=== PATIENT | male | born 1985 | race Caucasian/White ===

== ENCOUNTER 2016-06-06 13:12 | Emergency (ER) | payer MEDICARE, OTHER ==
[~2016-06-06] VITALS: Ht 182.9 cm; Wt 68.0 kg
[2016-06-06 14:39] LABS: BASOPHILS % (AUTO) 0.7 % (0.0-2.0); EOSINOPHILS % (AUTO) 0.6 % (1.0-6.0); HEMATOCRIT 48.4 % (41-53); HEMOGLOBIN 15.9 g/dL (13.5-17.5); LYMPHOCYTES # (AUTO) 1.5 K/uL (1.0-4.8); LYMPHOCYTES % (AUTO) 7.3 % (22.0-44.0); MEAN CORPUSCULAR HEMOGLOBIN 30.6 pg (26.0-34.0); MEAN CORPUSCULAR HGB CONC 32.9 G/dL (31.0-37.0); MEAN CORPUSCULAR VOLUME 93 fL (80-100); MONOCYTES # (AUTO) 1.1 K/uL (0.1-1.0); MONOCYTES % (AUTO) 5.4 % (2.0-9.0); NEUTROPHILS # (AUTO) 18.2 K/uL (1.8-7.7); PLATELET COUNT (AUTO) 474 K/uL (150-450); RED CELL DISTRIBUTION WIDTH 13.1 % (11.5-14.5); WHITE BLOOD COUNT (AUTO) 21.1 K/uL (4.5-11.0)
[2016-06-06 14:44] LABS: ANION GAP 18 mmol/L (8-16); CALCIUM, TOTAL 9.4 mg/dL (8.8-10.5); CARBON DIOXIDE 21 mmol/L (22-29); CHLORIDE 102 mmol/L (98-107); CREATININE 0.81 mg/dL (0.60-1.30); GLOMERULAR FILTR. RATE CALC > 60 mL/min (>60); POTASSIUM 4.2 mmol/L (3.5-5.1); SODIUM SERUM 141 mmol/L (136-145); UREA NITROGEN, BLOOD 16 mg/dL (7-18)
[2016-06-06 14:50] LABS: ALANINE AMINOTRANSFERASE 30 U/L (12-78); ASPARTATE AMINOTRANSFERASE 25 U/L (15-37); BILIRUBIN,TOTAL 0.9 mg/dL (0.1-1.0); TOTAL PROTEIN, SERUM 8.2 g/dL (6.4-8.2)
[2016-06-06 16:30] LABS: APPEARANCE,URINE CLEAR (CLEAR); GLUCOSE, URINE (UA) NEGATIVE (NEGATIVE); KETONES,URINE 15 mg/dL (NEGATIVE); LEUKOCYTE ESTERASE ,URINE NEGATIVE (NEGATIVE); OCCULT BLOOD,URINE NEGATIVE (NEGATIVE); PROTEIN,URINE NEGATIVE (NEGATIVE)
[2016-06-06 16:31] LABS: ADD UA MICROSCOPIC NO
[2016-06-06 16:57] LABS: GLUCOSE,POINT OF CARE 111 MG/DL (70-110)
[2016-06-06 18:01] VITALS: BP 131/72
== END 2016-06-06 18:03 | disposition home or self-care (01) ==
LOC: EMS 13:14
DX: F20.9 Schizophrenia, unspecified (principal); F31.9 Bipolar disorder, unspecified; E86.0 Dehydration; F15.10 Other stimulant abuse, uncomplicated; F17.210 Nicotine dependence, cigarettes, uncomplicated; F12.90 Cannabis use, unspecified, uncomplicated; Z88.8 Allergy status to other drugs, medicaments and biological substances
CPT/HCPCS: 36415; 80053; 80307; 81003; 82962; 85025; 99284; 99406; G0480

== ENCOUNTER 2016-06-06 18:46 | Emergency (ER) | payer MEDICARE, OTHER ==
[~2016-06-06] VITALS: Ht 177.8 cm; Wt 68.0 kg
[2016-06-07 01:41] VITALS: BP 114/74
[2016-06-07] MEDS ORDERED: BACITRACIN/POLYMYXIN B 15 GM OINTMENT TP ONE (01:45)
== END 2016-06-07 02:17 | disposition home or self-care (01) ==
LOC: EMS 18:49
DX: M79.674 Pain in right toe(s) (principal); F12.90 Cannabis use, unspecified, uncomplicated; F15.90 Other stimulant use, unspecified, uncomplicated; Z88.8 Allergy status to other drugs, medicaments and biological substances
CPT/HCPCS: 99283

== ENCOUNTER 2016-06-08 00:28 | Emergency (ER) | payer MEDICARE, OTHER ==
[~2016-06-08] VITALS: Ht 175.3 cm; Wt 80.9 kg
[2016-06-08 02:39] VITALS: BP 132/85
== END 2016-06-08 02:41 | disposition home or self-care (01) ==
LOC: EMS 00:30
DX: F41.9 Anxiety disorder, unspecified (principal); F12.10 Cannabis abuse, uncomplicated; F15.10 Other stimulant abuse, uncomplicated; F20.9 Schizophrenia, unspecified; F31.9 Bipolar disorder, unspecified; F10.20 Alcohol dependence, uncomplicated; Y90.9 Presence of alcohol in blood, level not specified; Z59.0 Homelessness; Z88.8 Allergy status to other drugs, medicaments and biological substances
CPT/HCPCS: 93005; 99283

== ENCOUNTER 2016-06-08 05:58 | Emergency (ER) | payer MEDICARE, OTHER ==
[~2016-06-08] VITALS: Ht 172.7 cm; Wt 81.8 kg
[2016-06-08 06:01] VITALS: BP 143/75
== END 2016-06-08 07:24 | disposition left against medical advice (07) ==
LOC: EMS 06:00
DX: F20.0 Paranoid schizophrenia (principal); F31.9 Bipolar disorder, unspecified; F12.10 Cannabis abuse, uncomplicated; F15.10 Other stimulant abuse, uncomplicated; F10.20 Alcohol dependence, uncomplicated; Y90.9 Presence of alcohol in blood, level not specified; Z59.0 Homelessness; Z88.8 Allergy status to other drugs, medicaments and biological substances
CPT/HCPCS: 99284

== ENCOUNTER 2016-06-20 00:28 | Emergency (ER) | payer MEDICARE, OTHER ==
[~2016-06-20] VITALS: Ht 185.4 cm; Wt 75.0 kg
[2016-06-20 02:14] LABS: BASOPHILS % (AUTO) 0.4 % (0.0-2.0); EOSINOPHILS % (AUTO) 1.2 % (1.0-6.0); HEMATOCRIT 48.7 % (41-53); LYMPHOCYTES % (AUTO) 11.4 % (22.0-44.0); MEAN CORPUSCULAR HEMOGLOBIN 30.5 pg (26.0-34.0); MEAN CORPUSCULAR HGB CONC 32.8 G/dL (31.0-37.0); MEAN CORPUSCULAR VOLUME 93 fL (80-100); MONOCYTES % (AUTO) 5.4 % (2.0-9.0); NEUTROPHILS # (AUTO) 14.6 K/uL (1.8-7.7); NEUTROPHILS % (AUTO) 81.6 % (40.0-70.0); PLATELET COUNT (AUTO) 425 K/uL (150-450); RED BLOOD CELL COUNT(AUTO) 5.24 MIL/uL (4.50-5.90); RED CELL DISTRIBUTION WIDTH 12.5 % (11.5-14.5); WHITE BLOOD COUNT (AUTO) 17.9 K/uL (4.5-11.0)
[2016-06-20 02:20] LABS: ANION GAP 16 mmol/L (8-16); CARBON DIOXIDE 21 mmol/L (22-29); CHLORIDE 100 mmol/L (98-107); CREATININE 0.76 mg/dL (0.60-1.30); GLOMERULAR FILTR. RATE CALC > 60 mL/min (>60); POTASSIUM 3.1 mmol/L (3.5-5.1); SODIUM SERUM 137 mmol/L (136-145); UREA NITROGEN, BLOOD 18 mg/dL (7-18)
[2016-06-20 02:26] LABS: ALANINE AMINOTRANSFERASE 23 U/L (12-78); ALBUMIN 3.8 g/dL (3.4-5.0); ASPARTATE AMINOTRANSFERASE 23 U/L (15-37); BILIRUBIN,TOTAL 0.6 mg/dL (0.1-1.0); TOTAL PROTEIN, SERUM 8.2 g/dL (6.4-8.2)
[2016-06-20] MEDS ORDERED: POTASSIUM CHLORIDE 10% 40 MEQ/30 ML LIQUID UDCUP PO ONE (02:45)
[2016-06-20 04:15] VITALS: BP 123/76
== END 2016-06-20 04:25 | disposition home or self-care (01) ==
LOC: EMS 00:34
DX: F10.229 Alcohol dependence with intoxication, unspecified (principal); F20.0 Paranoid schizophrenia; F31.9 Bipolar disorder, unspecified; F12.90 Cannabis use, unspecified, uncomplicated; F15.90 Other stimulant use, unspecified, uncomplicated; Y90.5 Blood alcohol level of 100-119 mg/100 ml; Z88.8 Allergy status to other drugs, medicaments and biological substances
CPT/HCPCS: 36415; 80053; 85025; 99284; G0480

== ENCOUNTER 2016-06-22 13:43 | Emergency (ER) | payer MEDICARE, OTHER ==
[~2016-06-22] VITALS: Ht 182.9 cm; Wt 72.0 kg
[2016-06-22] MEDS ORDERED: SODIUM CHLORIDE 0.9% 1,000 ML IV ONE (14:30)
[2016-06-22 16:38] VITALS: BP 129/79
== END 2016-06-22 18:39 | disposition home or self-care (01) ==
LOC: EMS 13:46
DX: E86.0 Dehydration (principal); G80.9 Cerebral palsy, unspecified; F20.0 Paranoid schizophrenia; F31.9 Bipolar disorder, unspecified; F12.90 Cannabis use, unspecified, uncomplicated; F15.90 Other stimulant use, unspecified, uncomplicated; Z59.0 Homelessness; Z88.8 Allergy status to other drugs, medicaments and biological substances
CPT/HCPCS: 96360; 99284; J7030

== ENCOUNTER 2016-06-25 19:09 | Emergency (ER) | payer MEDICARE, OTHER | END 2016-06-25 20:28 | disposition left against medical advice (07) | LOC: EMS 19:11 | DX: L29.9 Pruritus, unspecified (principal); Z53.21 Procedure and treatment not carried out due to patient leaving prior to being seen by health care provider ==

== ENCOUNTER 2016-07-24 21:08 | Emergency (ER) | payer MEDICARE, OTHER ==
[~2016-07-24] VITALS: Ht 182.9 cm; Wt 70.0 kg
[2016-07-24] MEDS ORDERED: SODIUM CHLORIDE 0.9% 1,000 ML IV ONE (21:45)
[2016-07-24 21:58] LABS: BASOPHILS # (AUTO) 0.02 K/uL (0.00-0.20); BASOPHILS % (AUTO) 0.1 % (0.0-2.0); EOSINOPHILS # (AUTO) 0.03 K/uL (0.00-0.70); EOSINOPHILS % (AUTO) 0.15 % (1.0-6.0); HEMATOCRIT 44.6 % (41-53); HEMOGLOBIN 14.8 g/dL (13.5-17.5); LYMPHOCYTES # (AUTO) 2.3 K/uL (1.0-4.8); LYMPHOCYTES % (AUTO) 9.6 % (22.0-44.0); MEAN CORPUSCULAR HEMOGLOBIN 30.2 pg (26.0-34.0); MEAN CORPUSCULAR HGB CONC 33.3 G/dL (31.0-37.0); MEAN CORPUSCULAR VOLUME 91 fL (80-100); MONOCYTES % (AUTO) 8.4 % (2.0-9.0); NEUTROPHILS # (AUTO) 19.2 K/uL (1.8-7.7); NEUTROPHILS % (AUTO) 81.7 % (40.0-70.0); PLATELET COUNT (AUTO) 387 K/uL (150-450); RED BLOOD CELL COUNT(AUTO) 4.91 MIL/uL (4.50-5.90); RED CELL DISTRIBUTION WIDTH 12.5 % (11.5-14.5); WHITE BLOOD COUNT (AUTO) 23.5 K/uL (4.5-11.0)
[2016-07-24] MEDS ORDERED: ONDANSETRON HCL 4 MG/2 ML VIAL IVP ONE (22:00)
[2016-07-24 22:20] LABS: ANION GAP 17 mmol/L (8-16); CALCIUM, TOTAL 9.1 mg/dL (8.8-10.5); CARBON DIOXIDE 19 mmol/L (22-29); CHLORIDE 99 mmol/L (98-107); CREATININE 0.84 mg/dL (0.60-1.30); GLOMERULAR FILTR. RATE CALC > 60 mL/min (>60); SODIUM SERUM 135 mmol/L (136-145); UREA NITROGEN, BLOOD 22 mg/dL (7-18)
[2016-07-24] MEDS ORDERED: IOVERSOL 350 MG/ML 100 ML VIAL ONE (22:31)
[2016-07-24] MEDS ORDERED: SODIUM CHLORIDE 0.9% 100 ML ONE (22:31)
[2016-07-24 22:56] LABS: ALANINE AMINOTRANSFERASE 51 U/L (12-78); ALBUMIN 4.1 g/dL (3.4-5.0); ASPARTATE AMINOTRANSFERASE 54 U/L (15-37); BILIRUBIN,TOTAL 0.9 mg/dL (0.1-1.0); TOTAL PROTEIN, SERUM 8.3 g/dL (6.4-8.2)
[2016-07-25 01:07] VITALS: BP 137/75
== END 2016-07-25 00:28 | disposition home or self-care (01) ==
LOC: EMS 21:12
DX: F10.120 Alcohol abuse with intoxication, uncomplicated (principal); R10.9 Unspecified abdominal pain; R11.2 Nausea with vomiting, unspecified; F20.9 Schizophrenia, unspecified; F12.10 Cannabis abuse, uncomplicated
CPT/HCPCS: 36415; 74177; 80053; 80307; 83690; 85025; 96361; 96374; 99285; G0480; J2405; J7030; J7050; Q9967

== ENCOUNTER 2016-08-01 15:22 | Emergency (ER) | payer MEDICARE, OTHER ==
[~2016-08-01] VITALS: Ht 182.9 cm; Wt 68.2 kg
[2016-08-01 16:28] LABS: BASOPHILS % (AUTO) 0.9 % (0.0-2.0); EOSINOPHILS % (AUTO) 8.1 % (1.0-6.0); HEMATOCRIT 43.3 % (41-53); HEMOGLOBIN 14.1 g/dL (13.5-17.5); LYMPHOCYTES % (AUTO) 19.1 % (22.0-44.0); MEAN CORPUSCULAR HEMOGLOBIN 30.1 pg (26.0-34.0); MEAN CORPUSCULAR HGB CONC 32.5 G/dL (31.0-37.0); MEAN CORPUSCULAR VOLUME 93 fL (80-100); MONOCYTES # (AUTO) 0.8 K/uL (0.1-1.0); MONOCYTES % (AUTO) 7.7 % (2.0-9.0); NEUTROPHILS # (AUTO) 6.7 K/uL (1.8-7.7); NEUTROPHILS % (AUTO) 64.2 % (40.0-70.0); PLATELET COUNT (AUTO) 380 K/uL (150-450); RED BLOOD CELL COUNT(AUTO) 4.67 MIL/uL (4.50-5.90); RED CELL DISTRIBUTION WIDTH 12.9 % (11.5-14.5); WHITE BLOOD COUNT (AUTO) 10.5 K/uL (4.5-11.0)
[2016-08-01 16:38] LABS: ANION GAP 9 mmol/L (8-16); CALCIUM, TOTAL 8.2 mg/dL (8.8-10.5); CARBON DIOXIDE 26 mmol/L (22-29); CHLORIDE 107 mmol/L (98-107); CREATININE 0.68 mg/dL (0.60-1.30); GLOMERULAR FILTR. RATE CALC > 60 mL/min (>60); POTASSIUM 3.9 mmol/L (3.5-5.1); SODIUM SERUM 142 mmol/L (136-145); UREA NITROGEN, BLOOD 6 mg/dL (7-18)
[2016-08-01 16:45] LABS: ALANINE AMINOTRANSFERASE 38 U/L (12-78); ALBUMIN 3.1 g/dL (3.4-5.0); ASPARTATE AMINOTRANSFERASE 30 U/L (15-37); BILIRUBIN,TOTAL 0.5 mg/dL (0.1-1.0); TOTAL PROTEIN, SERUM 6.8 g/dL (6.4-8.2)
[2016-08-01 17:33] VITALS: BP 121/67
== END 2016-08-01 17:46 | disposition home or self-care (01) ==
LOC: EMS 15:24
DX: F20.9 Schizophrenia, unspecified (principal); F31.9 Bipolar disorder, unspecified; F12.90 Cannabis use, unspecified, uncomplicated; F19.90 Other psychoactive substance use, unspecified, uncomplicated; Z88.0 Allergy status to penicillin
CPT/HCPCS: 36415; 80053; 80307; 85025; 99284; G0480

== ENCOUNTER 2016-10-02 14:27 | Emergency (ER) | payer MEDICARE, OTHER ==
[~2016-10-02] VITALS: Ht 180.3 cm; Wt 65.9 kg
[2016-10-02 16:47] VITALS: BP 117/71
== END 2016-10-02 17:21 | disposition home or self-care (01) ==
LOC: EMS 14:29
DX: F10.229 Alcohol dependence with intoxication, unspecified (principal); F31.9 Bipolar disorder, unspecified; F20.9 Schizophrenia, unspecified; F12.90 Cannabis use, unspecified, uncomplicated; F19.90 Other psychoactive substance use, unspecified, uncomplicated; Z88.8 Allergy status to other drugs, medicaments and biological substances
CPT/HCPCS: 99283

== ENCOUNTER 2016-10-04 10:19 | Emergency (ER) | payer MEDICARE, OTHER ==
[~2016-10-04] VITALS: Ht 185.4 cm; Wt 75.0 kg
[2016-10-04] MEDS ORDERED: IBUPROFEN 800 MG TABLET PO ONE (11:30)
[2016-10-04 12:45] VITALS: BP 130/92
== END 2016-10-04 12:45 | disposition home or self-care (01) ==
LOC: EMS 10:22
DX: S60.222A Contusion of left hand, initial encounter (principal); Z88.8 Allergy status to other drugs, medicaments and biological substances; W18.39XA Other fall on same level, initial encounter; Y93.89 Activity, other specified; Y92.89 Other specified places as the place of occurrence of the external cause; Y99.8 Other external cause status
CPT/HCPCS: 99284

== ENCOUNTER 2016-10-16 09:08 | Emergency (ER) | payer MEDICARE, OTHER ==
[~2016-10-16] VITALS: Ht 180.3 cm; Wt 75.0 kg
[2016-10-16 09:52] LABS: EOSINOPHILS % (AUTO) 7.2 % (1.0-6.0); HEMATOCRIT 43.7 % (41-53); HEMOGLOBIN 14.9 g/dL (13.5-17.5); LYMPHOCYTES # (AUTO) 4.2 K/uL (1.0-4.8); LYMPHOCYTES % (AUTO) 38.8 % (22.0-44.0); MEAN CORPUSCULAR HEMOGLOBIN 31.1 pg (26.0-34.0); MEAN CORPUSCULAR HGB CONC 34.1 G/dL (31.0-37.0); MEAN CORPUSCULAR VOLUME 91 fL (80-100); MONOCYTES # (AUTO) 0.7 K/uL (0.1-1.0); MONOCYTES % (AUTO) 6.8 % (2.0-9.0); NEUTROPHILS # (AUTO) 4.9 K/uL (1.8-7.7); NEUTROPHILS % (AUTO) 46.2 % (40.0-70.0); PLATELET COUNT (AUTO) 383 K/uL (150-450); RED CELL DISTRIBUTION WIDTH 13.1 % (11.5-14.5); WHITE BLOOD COUNT (AUTO) 10.7 K/uL (4.5-11.0)
[2016-10-16 09:56] LABS: ANION GAP 13 mmol/L (8-16); CALCIUM, TOTAL 8.1 mg/dL (8.8-10.5); CARBON DIOXIDE 23 mmol/L (22-29); CHLORIDE 106 mmol/L (98-107); CREATININE 0.74 mg/dL (0.60-1.30); GLOMERULAR FILTR. RATE CALC > 60 mL/min (>60); POTASSIUM 3.4 mmol/L (3.5-5.1); SODIUM SERUM 142 mmol/L (136-145); UREA NITROGEN, BLOOD 10 mg/dL (7-18)
[2016-10-16 10:02] LABS: ALANINE AMINOTRANSFERASE 28 U/L (12-78); ALBUMIN 3.7 g/dL (3.4-5.0); ASPARTATE AMINOTRANSFERASE 22 U/L (15-37); BILIRUBIN,TOTAL 1.4 mg/dL (0.1-1.0); TOTAL PROTEIN, SERUM 7.5 g/dL (6.4-8.2)
[2016-10-16 14:32] VITALS: BP 119/77
== END 2016-10-16 14:59 | disposition home or self-care (01) ==
LOC: EMS 09:10
DX: F10.229 Alcohol dependence with intoxication, unspecified (principal); F31.9 Bipolar disorder, unspecified; F20.9 Schizophrenia, unspecified; Z88.8 Allergy status to other drugs, medicaments and biological substances; Y90.7 Blood alcohol level of 200-239 mg/100 ml
CPT/HCPCS: 36415; 80053; 85025; 99284; G0480

== ENCOUNTER 2016-10-28 05:13 | Emergency (ER) | payer MEDICARE, OTHER ==
[~2016-10-28] VITALS: Ht 185.4 cm; Wt 75.0 kg
[2016-10-28 06:24] VITALS: BP 137/81
== END 2016-10-28 06:44 | disposition home or self-care (01) ==
LOC: EMS 05:14
DX: E86.0 Dehydration (principal); F17.210 Nicotine dependence, cigarettes, uncomplicated; F12.90 Cannabis use, unspecified, uncomplicated; Z88.8 Allergy status to other drugs, medicaments and biological substances
CPT/HCPCS: 99283

== ENCOUNTER 2016-11-10 16:37 | Emergency (ER) | payer MEDICARE, OTHER ==
[~2016-11-10] VITALS: Ht 185.4 cm; Wt 71.0 kg
[2016-11-10 16:54] VITALS: BP 134/72
== END 2016-11-10 17:09 | disposition left against medical advice (07) ==
LOC: EMS 16:40
DX: Z53.21 Procedure and treatment not carried out due to patient leaving prior to being seen by health care provider (principal)

== ENCOUNTER 2016-11-10 21:18 | Emergency (ER) | payer MEDICARE, OTHER ==
[~2016-11-10] VITALS: Ht 182.9 cm; Wt 54.5 kg
[2016-11-10 21:27] VITALS: BP 135/87
== END 2016-11-11 00:12 | disposition left against medical advice (07) ==
LOC: EMS 21:23
DX: R10.84 Generalized abdominal pain (principal); R11.2 Nausea with vomiting, unspecified; F17.210 Nicotine dependence, cigarettes, uncomplicated; Z53.21 Procedure and treatment not carried out due to patient leaving prior to being seen by health care provider

== ENCOUNTER 2016-11-11 10:20 | Emergency (ER) | payer MEDICARE, OTHER ==
[~2016-11-11] VITALS: Ht 172.7 cm; Wt 86.0 kg
[2016-11-11] MEDS ORDERED: MAGNESIUM SULFATE 2 GM, MVI, ADULT NO.1 WITH VIT K 10 ML, THIAMINE HCL 100 MG, FOLIC AC... IV ONE ×5 (11:00)
[2016-11-11 11:14] LABS: BASOPHILS # (AUTO) 0.04 K/uL (0.00-0.20); BASOPHILS % (AUTO) 0.3 % (0.0-2.0); EOSINOPHILS # (AUTO) 0.08 K/uL (0.00-0.70); HEMOGLOBIN 15.2 g/dL (13.5-17.5); LYMPHOCYTES # (AUTO) 2.1 K/uL (1.0-4.8); LYMPHOCYTES % (AUTO) 13.4 % (22.0-44.0); MEAN CORPUSCULAR HEMOGLOBIN 30.9 pg (26.0-34.0); MEAN CORPUSCULAR HGB CONC 33.1 G/dL (31.0-37.0); MEAN CORPUSCULAR VOLUME 93 fL (80-100); MONOCYTES # (AUTO) 1.9 K/uL (0.1-1.0); NEUTROPHILS # (AUTO) 11.7 K/uL (1.8-7.7); NEUTROPHILS % (AUTO) 73.9 % (40.0-70.0); PLATELET COUNT (AUTO) 399 K/uL (150-450); RED BLOOD CELL COUNT(AUTO) 4.93 MIL/uL (4.50-5.90); RED CELL DISTRIBUTION WIDTH 13.3 % (11.5-14.5); WHITE BLOOD COUNT (AUTO) 15.8 K/uL (4.5-11.0)
[2016-11-11 11:25] LABS: ANION GAP 9 mmol/L (8-16); CALCIUM, TOTAL 9.7 mg/dL (8.8-10.5); CARBON DIOXIDE 30 mmol/L (22-29); CHLORIDE 99 mmol/L (98-107); GLOMERULAR FILTR. RATE CALC > 60 mL/min (>60); POTASSIUM 3.6 mmol/L (3.5-5.1); SODIUM SERUM 138 mmol/L (136-145); UREA NITROGEN, BLOOD 22 mg/dL (7-18)
[2016-11-11 11:30] LABS: ALANINE AMINOTRANSFERASE 46 U/L (12-78); ALBUMIN 4.1 g/dL (3.4-5.0); ASPARTATE AMINOTRANSFERASE 45 U/L (15-37); TOTAL PROTEIN, SERUM 8.1 g/dL (6.4-8.2)
[2016-11-11 12:47] VITALS: BP 148/79
== END 2016-11-11 13:29 | disposition home or self-care (01) ==
LOC: EMS 10:25
DX: F25.9 Schizoaffective disorder, unspecified (principal); F17.210 Nicotine dependence, cigarettes, uncomplicated; F12.10 Cannabis abuse, uncomplicated; F31.9 Bipolar disorder, unspecified; F10.20 Alcohol dependence, uncomplicated; G80.9 Cerebral palsy, unspecified; Z59.0 Homelessness; Z88.8 Allergy status to other drugs, medicaments and biological substances
CPT/HCPCS: 36415; 80053; 83690; 85025; 99284; G0480; J3411; J3475; J3490; J7030

== ENCOUNTER 2016-11-29 16:08 | Emergency (ER) | payer MEDICARE, OTHER ==
[~2016-11-29] VITALS: Ht 177.8 cm; Wt 72.7 kg
[2016-11-29 16:15] VITALS: BP 130/80
[2016-11-29] MEDS ORDERED: MUPIROCIN CALCIUM 2% 22 GM OINTMENT TP ONE (17:15)
== END 2016-11-29 17:22 | disposition home or self-care (01) ==
LOC: EMS 16:11
DX: F19.10 Other psychoactive substance abuse, uncomplicated (principal); F12.10 Cannabis abuse, uncomplicated; F31.9 Bipolar disorder, unspecified; F20.9 Schizophrenia, unspecified; F10.20 Alcohol dependence, uncomplicated; F17.210 Nicotine dependence, cigarettes, uncomplicated; Z91.19 Patient's noncompliance with other medical treatment and regimen; Z59.0 Homelessness
CPT/HCPCS: 99283

== ENCOUNTER 2016-12-02 00:51 | Emergency (ER) | payer MEDICARE, OTHER ==
[~2016-12-02] VITALS: Ht 177.8 cm; Wt 100.0 kg
[2016-12-02 05:43] VITALS: BP 123/78
== END 2016-12-02 05:58 | disposition home or self-care (01) ==
LOC: EMS 00:54
DX: F20.9 Schizophrenia, unspecified (principal); F31.9 Bipolar disorder, unspecified; F17.210 Nicotine dependence, cigarettes, uncomplicated; F12.90 Cannabis use, unspecified, uncomplicated; Z59.0 Homelessness; Z88.8 Allergy status to other drugs, medicaments and biological substances
CPT/HCPCS: 99284

== ENCOUNTER 2016-12-03 06:39 | Emergency (ER) | payer MEDICARE, OTHER ==
[~2016-12-03] VITALS: Ht 177.8 cm; Wt 72.0 kg
[2016-12-03 08:18] VITALS: BP 133/90
== END 2016-12-03 08:40 | disposition left against medical advice (07) ==
LOC: EMS 06:40
DX: F20.0 Paranoid schizophrenia (principal); F31.9 Bipolar disorder, unspecified; F17.210 Nicotine dependence, cigarettes, uncomplicated; F12.10 Cannabis abuse, uncomplicated; Z88.8 Allergy status to other drugs, medicaments and biological substances
CPT/HCPCS: 99283

== ENCOUNTER 2016-12-07 18:51 | Emergency (ER) | payer MEDICARE, OTHER ==
[~2016-12-07] VITALS: Ht 175.3 cm; Wt 70.5 kg
[2016-12-07 19:02] VITALS: BP 134/70
[2016-12-07 19:03] LABS: GLUCOSE,POINT OF CARE 89 MG/DL (70-110)
== END 2016-12-07 19:45 | disposition home or self-care (01) ==
LOC: EMS 18:53
DX: F20.0 Paranoid schizophrenia (principal); F31.9 Bipolar disorder, unspecified; F12.90 Cannabis use, unspecified, uncomplicated; F17.210 Nicotine dependence, cigarettes, uncomplicated; Z88.8 Allergy status to other drugs, medicaments and biological substances
CPT/HCPCS: 82962; 99284; 99406

== ENCOUNTER 2016-12-08 23:42 | Emergency (ER) | payer MEDICARE, OTHER ==
[~2016-12-08] VITALS: Ht 172.7 cm; Wt 68.2 kg
[2016-12-08 23:45] VITALS: BP 132/83
== END 2016-12-09 03:01 | disposition left against medical advice (07) ==
LOC: EMS 23:44
DX: R53.1 Weakness (principal); F12.90 Cannabis use, unspecified, uncomplicated; F17.210 Nicotine dependence, cigarettes, uncomplicated; Z53.21 Procedure and treatment not carried out due to patient leaving prior to being seen by health care provider

== ENCOUNTER 2016-12-23 00:15 | Emergency (ER) | payer MEDICARE, OTHER ==
[~2016-12-23] VITALS: Ht 175.3 cm; Wt 81.0 kg
[2016-12-23 03:35] VITALS: BP 118/69
== END 2016-12-23 04:08 | disposition home or self-care (01) ==
LOC: EMS 00:17
DX: F10.229 Alcohol dependence with intoxication, unspecified (principal); F20.9 Schizophrenia, unspecified; F31.9 Bipolar disorder, unspecified; F12.90 Cannabis use, unspecified, uncomplicated; F17.210 Nicotine dependence, cigarettes, uncomplicated; Y90.9 Presence of alcohol in blood, level not specified; Z88.8 Allergy status to other drugs, medicaments and biological substances
CPT/HCPCS: 99284

== ENCOUNTER 2017-01-20 09:43 | Emergency (ER) | payer MEDICARE, OTHER ==
[~2017-01-20] VITALS: Ht 185.4 cm; Wt 59.1 kg
[2017-01-20 10:47] LABS: GLUCOSE,POINT OF CARE 53 MG/DL (70-110)
[2017-01-20 11:22] LABS: GLUCOSE,POINT OF CARE 92 MG/DL (70-110)
[2017-01-20 11:45] VITALS: BP 147/89
== END 2017-01-20 11:47 | disposition home or self-care (01) ==
LOC: EMS 09:46
DX: F20.9 Schizophrenia, unspecified (principal); F10.229 Alcohol dependence with intoxication, unspecified; R79.89 Other specified abnormal findings of blood chemistry; F31.9 Bipolar disorder, unspecified; F15.10 Other stimulant abuse, uncomplicated; F17.210 Nicotine dependence, cigarettes, uncomplicated; F41.9 Anxiety disorder, unspecified; G80.9 Cerebral palsy, unspecified; Z59.0 Homelessness
CPT/HCPCS: 82962; 99284

== ENCOUNTER 2017-01-20 16:54 | Emergency (ER) | payer MEDICARE, OTHER ==
[~2017-01-20] VITALS: Ht 185.4 cm; Wt 77.3 kg
[2017-01-20 16:55] VITALS: BP 164/129
== END 2017-01-20 17:35 | disposition home or self-care (01) ==
LOC: EMS 16:56
DX: T67.9XXA Effect of heat and light, unspecified, initial encounter (principal); F17.210 Nicotine dependence, cigarettes, uncomplicated; F12.90 Cannabis use, unspecified, uncomplicated; F19.90 Other psychoactive substance use, unspecified, uncomplicated; Z88.8 Allergy status to other drugs, medicaments and biological substances; Z76.5 Malingerer [conscious simulation]
CPT/HCPCS: 99281

== ENCOUNTER 2017-01-21 07:32 | Emergency (ER) | payer MEDICARE, OTHER ==
[~2017-01-21] VITALS: Ht 180.3 cm; Wt 58.0 kg
[2017-01-21 07:35] VITALS: BP 145/103
== END 2017-01-21 08:00 | disposition left against medical advice (07) ==
LOC: EMS 07:34
DX: F31.9 Bipolar disorder, unspecified (principal); R45.851 Suicidal ideations; F12.90 Cannabis use, unspecified, uncomplicated; F15.90 Other stimulant use, unspecified, uncomplicated; F17.210 Nicotine dependence, cigarettes, uncomplicated; Z53.21 Procedure and treatment not carried out due to patient leaving prior to being seen by health care provider

== ENCOUNTER 2017-03-24 17:21 | Emergency (ER) | payer MEDICARE, OTHER ==
[~2017-03-24] VITALS: Ht 182.9 cm; Wt 79.5 kg
[2017-03-24 19:22] VITALS: BP 132/72
== END 2017-03-24 19:39 | disposition home or self-care (01) ==
LOC: EMS 17:24
DX: F20.9 Schizophrenia, unspecified (principal); G80.9 Cerebral palsy, unspecified; F15.10 Other stimulant abuse, uncomplicated; F10.10 Alcohol abuse, uncomplicated; Z59.0 Homelessness; F17.210 Nicotine dependence, cigarettes, uncomplicated; F12.10 Cannabis abuse, uncomplicated
CPT/HCPCS: 99283; 99406

== ENCOUNTER 2017-05-06 13:41 | Emergency (ER) | payer MEDICARE, OTHER ==
[~2017-05-06] VITALS: Ht 188 cm; Wt 68.2 kg
[2017-05-06 18:55] VITALS: BP 134/84
== END 2017-05-06 19:01 | disposition home or self-care (01) ==
LOC: EMS 13:43
DX: G80.9 Cerebral palsy, unspecified (principal); F20.0 Paranoid schizophrenia; F15.10 Other stimulant abuse, uncomplicated; F31.9 Bipolar disorder, unspecified; F17.210 Nicotine dependence, cigarettes, uncomplicated; F12.90 Cannabis use, unspecified, uncomplicated; F19.90 Other psychoactive substance use, unspecified, uncomplicated; Z59.0 Homelessness; Z88.8 Allergy status to other drugs, medicaments and biological substances
CPT/HCPCS: 99281

== ENCOUNTER 2018-08-03 15:53 | Emergency (ER) | payer MEDICARE, OTHER ==
[~2018-08-03] VITALS: Ht 182.9 cm; Wt 50.0 kg
[2018-08-03 18:00] VITALS: BP 120/89
== END 2018-08-03 19:47 | disposition home or self-care (01) ==
LOC: EMS 15:56
DX: F20.0 Paranoid schizophrenia (principal); F10.20 Alcohol dependence, uncomplicated; F15.10 Other stimulant abuse, uncomplicated; F31.9 Bipolar disorder, unspecified; F12.90 Cannabis use, unspecified, uncomplicated; F17.210 Nicotine dependence, cigarettes, uncomplicated; Z59.0 Homelessness; Y90.9 Presence of alcohol in blood, level not specified; Z88.8 Allergy status to other drugs, medicaments and biological substances
CPT/HCPCS: 99406

== ENCOUNTER 2018-08-22 23:51 | Emergency (ER) | payer MEDICARE, OTHER ==
[~2018-08-22] VITALS: Ht 182.9 cm; Wt 81.8 kg
[2018-08-23 00:42] LABS: BASOPHILS % (AUTO) 0.6 % (0.0-2.0); EOSINOPHILS % (AUTO) 8.6 % (1.0-6.0); HEMATOCRIT 47.7 % (41-53); HEMOGLOBIN 15.9 g/dL (13.5-17.5); LYMPHOCYTES # (AUTO) 2.1 K/uL (1.0-4.8); LYMPHOCYTES % (AUTO) 21.4 % (22.0-44.0); MEAN CORPUSCULAR HEMOGLOBIN 30.9 pg (26.0-34.0); MEAN CORPUSCULAR HGB CONC 33.3 G/dL (31.0-37.0); MEAN CORPUSCULAR VOLUME 93 fL (80-100); MONOCYTES # (AUTO) 1.1 K/uL (0.1-1.0); MONOCYTES % (AUTO) 11.1 % (2.0-9.0); NEUTROPHILS # (AUTO) 5.8 K/uL (1.8-7.7); NEUTROPHILS % (AUTO) 58.3 % (40.0-70.0); PLATELET COUNT (AUTO) 374 K/uL (150-450); RED BLOOD CELL COUNT(AUTO) 5.14 MIL/uL (4.50-5.90); RED CELL DISTRIBUTION WIDTH 13.3 % (11.5-14.5)
[2018-08-23 00:51] LABS: ANION GAP 14 mmol/L (8-16); CALCIUM, TOTAL 8.6 mg/dL (8.8-10.5); CARBON DIOXIDE 23 mmol/L (22-29); CHLORIDE 104 mmol/L (98-107); CREATININE 0.71 mg/dL (0.60-1.30); GLOMERULAR FILTR. RATE CALC > 60 mL/min (>60); GLUCOSE,RANDOM 83 mg/dL (70-110); POTASSIUM 3.3 mmol/L (3.5-5.1); SODIUM SERUM 141 mmol/L (136-145); UREA NITROGEN, BLOOD 13 mg/dL (7-18)
[2018-08-23 00:54] LABS: ALANINE AMINOTRANSFERASE 45 U/L (12-78); ALBUMIN 3.6 g/dL (3.4-5.0); ALKALINE PHOSPHATASE 78 U/L (46-116); ASPARTATE AMINOTRANSFERASE 31 U/L (15-37); BILIRUBIN,TOTAL 0.4 mg/dL (0.1-1.0); TOTAL PROTEIN, SERUM 7.6 g/dL (6.4-8.2)
[2018-08-23 03:30] VITALS: BP 126/86
== END 2018-08-23 04:45 | disposition home or self-care (01) ==
LOC: EMS 23:54
DX: F10.129 Alcohol abuse with intoxication, unspecified (principal); F31.9 Bipolar disorder, unspecified; F20.9 Schizophrenia, unspecified; F17.210 Nicotine dependence, cigarettes, uncomplicated; F12.90 Cannabis use, unspecified, uncomplicated; F19.90 Other psychoactive substance use, unspecified, uncomplicated; Z59.0 Homelessness; Z88.8 Allergy status to other drugs, medicaments and biological substances; Y90.6 Blood alcohol level of 120-199 mg/100 ml
CPT/HCPCS: 36415; 80053; 85025; 99283; G0480

== ENCOUNTER 2018-10-17 15:49 | Emergency (ER) | payer MEDICARE, OTHER ==
[~2018-10-17] VITALS: Ht 185.4 cm; Wt 70.0 kg
[2018-10-17 17:37] LABS: BASOPHILS % (AUTO) 0.6 % (0.0-2.0); EOSINOPHILS % (AUTO) 8.2 % (1.0-6.0); HEMATOCRIT 44.5 % (41-53); HEMOGLOBIN 14.8 g/dL (13.5-17.5); LYMPHOCYTES # (AUTO) 2.1 K/uL (1.0-4.8); LYMPHOCYTES % (AUTO) 17.4 % (22.0-44.0); MEAN CORPUSCULAR HEMOGLOBIN 30.5 pg (26.0-34.0); MEAN CORPUSCULAR HGB CONC 33.2 G/dL (31.0-37.0); MEAN CORPUSCULAR VOLUME 92 fL (80-100); MONOCYTES # (AUTO) 1.1 K/uL (0.1-1.0); MONOCYTES % (AUTO) 9.2 % (2.0-9.0); NEUTROPHILS # (AUTO) 7.9 K/uL (1.8-7.7); NEUTROPHILS % (AUTO) 64.6 % (40.0-70.0); PLATELET COUNT (AUTO) 421 K/uL (150-450); RED BLOOD CELL COUNT(AUTO) 4.84 MIL/uL (4.50-5.90); RED CELL DISTRIBUTION WIDTH 13.4 % (11.5-14.5)
[2018-10-17 17:57] LABS: ANION GAP 10 mmol/L (8-16); CALCIUM, TOTAL 9.1 mg/dL (8.8-10.5); CARBON DIOXIDE 26 mmol/L (22-29); CHLORIDE 104 mmol/L (98-107); CREATININE 1.02 mg/dL (0.60-1.30); GLOMERULAR FILTR. RATE CALC > 60 mL/min (>60); GLUCOSE,RANDOM 88 mg/dL (70-110); POTASSIUM 3.8 mmol/L (3.5-5.1); SODIUM SERUM 140 mmol/L (136-145); UREA NITROGEN, BLOOD 13 mg/dL (7-18)
[2018-10-17 18:03] LABS: ALANINE AMINOTRANSFERASE 25 U/L (12-78); ALBUMIN 2.9 g/dL (3.4-5.0); ALKALINE PHOSPHATASE 81 U/L (46-116); ASPARTATE AMINOTRANSFERASE 16 U/L (15-37); BILIRUBIN,TOTAL 0.4 mg/dL (0.1-1.0); TOTAL PROTEIN, SERUM 6.9 g/dL (6.4-8.2)
[2018-10-17 18:41] VITALS: BP 128/72
== END 2018-10-17 20:35 | disposition home or self-care (01) ==
LOC: EMS 15:50
DX: R53.1 Weakness (principal); F20.9 Schizophrenia, unspecified; F31.9 Bipolar disorder, unspecified; F12.90 Cannabis use, unspecified, uncomplicated; F15.90 Other stimulant use, unspecified, uncomplicated; F17.210 Nicotine dependence, cigarettes, uncomplicated; Z59.0 Homelessness; Z88.8 Allergy status to other drugs, medicaments and biological substances
CPT/HCPCS: 36415; 80053; 85025; 99283; G0480

== ENCOUNTER 2018-10-18 13:03 | Inpatient (IN) | payer MEDICARE, MEDICAID ==
[~2018-10-18] VITALS: Ht 188 cm; Wt 74.8 kg
[2018-10-18] MEDS ORDERED: SODIUM CHLORIDE 0.9% 1,000 ML IV ONE (13:45)
[2018-10-18 14:49] LABS: BASOPHILS % (AUTO) 0.5 % (0.0-2.0); EOSINOPHILS % (AUTO) 8.4 % (1.0-6.0); HEMOGLOBIN 14.4 g/dL (13.5-17.5); LYMPHOCYTES # (AUTO) 1.7 K/uL (1.0-4.8); LYMPHOCYTES % (AUTO) 15.4 % (22.0-44.0); MEAN CORPUSCULAR HEMOGLOBIN 30.2 pg (26.0-34.0); MEAN CORPUSCULAR HGB CONC 32.7 G/dL (31.0-37.0); MEAN CORPUSCULAR VOLUME 92 fL (80-100); MONOCYTES # (AUTO) 0.8 K/uL (0.1-1.0); MONOCYTES % (AUTO) 7.3 % (2.0-9.0); NEUTROPHILS # (AUTO) 7.6 K/uL (1.8-7.7); NEUTROPHILS % (AUTO) 68.4 % (40.0-70.0); PLATELET COUNT (AUTO) 425 K/uL (150-450); RED BLOOD CELL COUNT(AUTO) 4.76 MIL/uL (4.50-5.90); RED CELL DISTRIBUTION WIDTH 13.1 % (11.5-14.5)
[2018-10-18 14:58] LABS: ANION GAP 12 mmol/L (8-16); CALCIUM, TOTAL 8.4 mg/dL (8.8-10.5); CARBON DIOXIDE 20 mmol/L (22-29); CHLORIDE 106 mmol/L (98-107); CREATININE 0.61 mg/dL (0.60-1.30); GLOMERULAR FILTR. RATE CALC > 60 mL/min (>60); GLUCOSE,RANDOM 92 mg/dL (70-110); POTASSIUM 3.7 mmol/L (3.5-5.1); SODIUM SERUM 138 mmol/L (136-145); UREA NITROGEN, BLOOD 16 mg/dL (7-18)
[2018-10-18 15:03] LABS: ALANINE AMINOTRANSFERASE 20 U/L (12-78); ALBUMIN 2.8 g/dL (3.4-5.0); ALKALINE PHOSPHATASE 75 U/L (46-116); ASPARTATE AMINOTRANSFERASE 18 U/L (15-37); BILIRUBIN,TOTAL 0.3 mg/dL (0.1-1.0); TOTAL PROTEIN, SERUM 6.9 g/dL (6.4-8.2)
[2018-10-18] MEDS ORDERED: DiphenhydrAMINE HCL 25 MG CAPSULE PO ONE (18:00)
[2018-10-18 18:35] VITALS: BP 139/85
[2018-10-18] MEDS: QUEtiapine FUMARATE 100 MG TABLET PO PRN (18:59)
[2018-10-18] MEDS: LORazepam 2 MG TABLET PO PRN (18:59)
[2018-10-18] MEDS ORDERED: CloNIDine HCL 0.1 MG TABLET PO PRN (21:45)
[2018-10-19] MEDS ORDERED: IBUPROFEN 600 MG TABLET PO PRN (10:00)
[2018-10-19] MEDS ORDERED: ONDANSETRON HCL 4 MG TABLET PO PRN (10:00)
[2018-10-19] MEDS ORDERED: MAG HYDROX/AL HYDROX/SIMETH ES 30 ML SUSPENSION UDCUP PO PRN (10:00)
[2018-10-19] MEDS ORDERED: ALBUTEROL SULFATE HFA 90 MCG/PUFF 8 GM INHALER IH PRN (10:00)
[2018-10-19] MEDS ORDERED: PETROLATUM,WHITE 28 GM JELLY TP PRN (10:00)
[2018-10-19] MEDS ORDERED: MAGNESIUM HYDROXIDE SUSPENSION 30 ML UDCUP PO PRN (10:00)
[2018-10-19] MEDS ORDERED: ACETAMINOPHEN 325 MG TABLET PO PRN (10:00)
[2018-10-19] MEDS ORDERED: BENZOCAINE/MENTHOL LOZENGE MM PRN (10:00)
[2018-10-19] MEDS ORDERED: LOPERAMIDE HCL 2 MG CAPSULE PO PRN (10:00)
[2018-10-19] MEDS ORDERED: BACITRACIN 28.4 GM OINTMENT TP PRN (10:00)
[2018-10-19 16:07] VITALS: BP 123/71
[2018-10-20 05:06] VITALS: BP 127/76
[2018-10-20] MEDS: LORazepam 2 MG TABLET PO PRN ×2 (05:33→23:24)
[2018-10-20 07:57] LABS: CHOL/HDL RATIO 4.1 (4.2-7.3); FREE T4 (FREE THYROXINE) 0.79 ng/dL (0.76-1.46); THYROID STIMULATING HORMONE 2.19 uIU/mL (0.36-3.74)
[2018-10-20] MEDS: OMEPRAZOLE 20 MG CAPSULE PO SCH (08:39)
[2018-10-20] MEDS: DOCUSATE SODIUM 100 MG CAPSULE PO SCH (08:39)
[2018-10-20 16:40] VITALS: BP 125/78
[2018-10-21 00:30] VITALS: BP 128/82
[2018-10-21] MEDS: ZOLPIDEM TARTRATE 10 MG TABLET PO PRN (00:35)
[2018-10-21 08:17] VITALS: BP 148/98
[2018-10-21] MEDS: DOCUSATE SODIUM 100 MG CAPSULE PO SCH (08:21)
[2018-10-21] MEDS: OMEPRAZOLE 20 MG CAPSULE PO SCH (08:21)
[2018-10-21 08:26] LABS: HEMATOCRIT 47.2 % (41-53); HEMOGLOBIN 15.6 g/dL (13.5-17.5); MEAN CORPUSCULAR HEMOGLOBIN 30.5 pg (26.0-34.0); MEAN CORPUSCULAR VOLUME 93 fL (80-100); PLATELET COUNT (AUTO) 445 K/uL (150-450); RED CELL DISTRIBUTION WIDTH 13.1 % (11.5-14.5)
[2018-10-21 08:50] LABS: ANION GAP 11 mmol/L (8-16); CALCIUM, TOTAL 9.3 mg/dL (8.8-10.5); CARBON DIOXIDE 24 mmol/L (22-29); CHLORIDE 102 mmol/L (98-107); CREATININE 0.67 mg/dL (0.60-1.30); GLOMERULAR FILTR. RATE CALC > 60 mL/min (>60); GLUCOSE,RANDOM 75 mg/dL (70-110); PHOSPHORUS 4.3 mg/dL (2.5-4.9); POTASSIUM 4.4 mmol/L (3.5-5.1); SODIUM SERUM 137 mmol/L (136-145); UREA NITROGEN, BLOOD 16 mg/dL (7-18)
[2018-10-21] MEDS: LORazepam 2 MG TABLET PO PRN ×2 (08:56→19:16)
[2018-10-21 09:08] LABS: BAND NEUTROPHILS % (MANUAL) 1 % (0-5); EOSINOPHILS % (MANUAL) 5 % (1-6); LYMPHOCYTES % (MANUAL) 15 % (22-44); METAMYELOCYTES % 1 % (0-0); MONOCYTES % (MANUAL) 7 % (2-9); SEGMENTED NEUTROPHILS % 71 % (40-70)
[2018-10-21 16:25] VITALS: BP 148/47
[2018-10-21] MEDS ORDERED: DOCUSATE SODIUM 100 MG CAPSULE PO PRN (20:45)
[2018-10-21] MEDS ORDERED: OMEPRAZOLE 20 MG CAPSULE PO PRN (20:45)
[2018-10-22 01:21] VITALS: BP 143/92
[2018-10-22] MEDS: ZOLPIDEM TARTRATE 10 MG TABLET PO PRN (01:39)
[2018-10-22] MEDS: QUEtiapine FUMARATE 100 MG TABLET PO PRN (01:39)
[2018-10-22] MEDS: MAGNESIUM OXIDE 400 MG TABLET PO SCH (08:34)
[2018-10-22] MEDS: LORazepam 2 MG TABLET PO PRN (08:34)
[2018-10-22 16:13] VITALS: BP 124/90
[2018-10-22] MEDS: OLANZapine 5 MG TABLET PO SCH (17:00)
[2018-10-23 00:25] VITALS: BP 125/80
[2018-10-23] MEDS: ZOLPIDEM TARTRATE 10 MG TABLET PO PRN (01:18)
[2018-10-23 08:34] VITALS: BP 149/70
[2018-10-23] MEDS: MAGNESIUM OXIDE 400 MG TABLET PO SCH (09:09)
[2018-10-23] MEDS: OLANZapine 5 MG TABLET PO SCH ×2 (09:09→16:19)
[2018-10-23] MEDS ORDERED: PERMETHRIN 5% 60 GM CREAM TP ONE (13:15)
[2018-10-23] MEDS ORDERED: PIPERONYL BUTOXIDE/PYRETHRINS 120 ML SHAMPOO TP ONE (14:00)
[2018-10-23] MEDS ORDERED: HYDROCORTISONE 1% 30 GM CREAM TP PRN (14:15)
[2018-10-23 16:20] VITALS: BP 140/90
[2018-10-23] MEDS ORDERED: LORazepam 2 MG/ML VIAL ONE (19:35)
[2018-10-23] MEDS ORDERED: LORazepam 2 MG/ML VIAL IM ONE (19:45)
[2018-10-24 01:30] VITALS: BP 131/90
[2018-10-24 08:16] VITALS: BP 114/80
[2018-10-24 08:30] LABS: HEMATOCRIT 45.3 % (41-53); HEMOGLOBIN 15.1 g/dL (13.5-17.5); MEAN CORPUSCULAR HEMOGLOBIN 30.7 pg (26.0-34.0); MEAN CORPUSCULAR HGB CONC 33.3 G/dL (31.0-37.0); MEAN CORPUSCULAR VOLUME 92 fL (80-100); PLATELET COUNT (AUTO) 432 K/uL (150-450); RED BLOOD CELL COUNT(AUTO) 4.91 MIL/uL (4.50-5.90); RED CELL DISTRIBUTION WIDTH 13.2 % (11.5-14.5)
[2018-10-24 08:57] LABS: ANION GAP 10 mmol/L (8-16); CALCIUM, TOTAL 9.3 mg/dL (8.8-10.5); CARBON DIOXIDE 24 mmol/L (22-29); CHLORIDE 105 mmol/L (98-107); CREATININE 0.76 mg/dL (0.60-1.30); GLOMERULAR FILTR. RATE CALC > 60 mL/min (>60); GLUCOSE,RANDOM 84 mg/dL (70-110); POTASSIUM 4.4 mmol/L (3.5-5.1); SODIUM SERUM 139 mmol/L (136-145); UREA NITROGEN, BLOOD 17 mg/dL (7-18)
[2018-10-24] MEDS: MAGNESIUM OXIDE 400 MG TABLET PO SCH (09:12)
[2018-10-24] MEDS: OLANZapine 5 MG TABLET PO SCH ×2 (09:12→16:14)
[2018-10-24 09:27] LABS: BAND NEUTROPHILS % (MANUAL) 2 % (0-5); EOSINOPHILS % (MANUAL) 4 % (1-6); LYMPHOCYTES % (MANUAL) 17 % (22-44); MONOCYTES % (MANUAL) 8 % (2-9); SEGMENTED NEUTROPHILS % 69 % (40-70)
[2018-10-24 16:09] VITALS: BP 130/87
[2018-10-24] MEDS: ZOLPIDEM TARTRATE 10 MG TABLET PO PRN (21:31)
[2018-10-25 01:19] VITALS: BP 132/81
[2018-10-25] MEDS: OLANZapine 5 MG TABLET PO SCH ×2 (08:37→16:30)
[2018-10-25] MEDS: MAGNESIUM OXIDE 400 MG TABLET PO SCH (08:37)
[2018-10-25 08:59] VITALS: BP 119/89
[2018-10-25] MEDS: LORazepam 2 MG TABLET PO PRN (10:51)
[2018-10-25] MEDS: QUEtiapine FUMARATE 100 MG TABLET PO PRN (10:51)
[2018-10-25 16:16] VITALS: BP 131/89
[2018-10-26 00:04] VITALS: BP 126/80
[2018-10-26] MEDS: MAGNESIUM OXIDE 400 MG TABLET PO SCH (08:04)
[2018-10-26] MEDS: LORazepam 2 MG TABLET PO PRN (08:04)
[2018-10-26] MEDS: OLANZapine 5 MG TABLET PO SCH ×2 (08:04→16:34)
[2018-10-26 08:49] VITALS: BP 116/66
[2018-10-26 16:10] VITALS: BP 140/82
[2018-10-27 01:50] VITALS: BP 120/80
[2018-10-27 08:00] VITALS: BP 117/89
[2018-10-27] MEDS: OLANZapine 5 MG TABLET PO SCH (09:09)
[2018-10-27] MEDS: LORazepam 2 MG TABLET PO PRN (09:09)
[2018-10-27] MEDS: MAGNESIUM OXIDE 400 MG TABLET PO SCH (09:09)
[2018-10-27] MEDS ORDERED: OLAN5TAB2 PO (09:56)
[2018-10-27] MEDS ORDERED: MAGOX PO (10:08)
== END 2018-10-27 10:45 | disposition home or self-care (01) | DRG 885 ==
LOC: EMS 13:05 → B2X 18:50
PROVIDERS: ADMIT Psychiatry & Neurology Child & Adolescent Psychiatry; ATTEND Psychiatry & Neurology Child & Adolescent Psychiatry
DX: F25.0 Schizoaffective disorder, bipolar type (principal); R45.851 Suicidal ideations; F15.20 Other stimulant dependence, uncomplicated; E44.0 Moderate protein-calorie malnutrition; G80.9 Cerebral palsy, unspecified; F10.20 Alcohol dependence, uncomplicated; F17.200 Nicotine dependence, unspecified, uncomplicated; F41.9 Anxiety disorder, unspecified; K21.9 Gastro-esophageal reflux disease without esophagitis; G47.00 Insomnia, unspecified; I10 Essential (primary) hypertension; E86.0 Dehydration; F12.90 Cannabis use, unspecified, uncomplicated; R26.9 Unspecified abnormalities of gait and mobility; Z88.8 Allergy status to other drugs, medicaments and biological substances; Z91.5 Personal history of self-harm; Z59.0 Homelessness; Z71.6 Tobacco abuse counseling; Z68.21 Body mass index [BMI] 21.0-21.9, adult
CPT/HCPCS: 83735; 84100; 84439; 84443; 85007; G0480; J2060; J3230; J7030

== ENCOUNTER 2019-01-04 19:36 | Emergency (ER) | payer MEDICARE, OTHER ==
[~2019-01-04] VITALS: Ht 188 cm; Wt 70.0 kg
[~2019-01-04 19:36] MED LIST: MAGOX PO; OLAN5TAB2 PO
[2019-01-04 19:44] VITALS: BP 129/82
[2019-01-04 20:06] LABS: GLUCOSE,POINT OF CARE 45 MG/DL (70-110)
[2019-01-04 20:19] LABS: BASOPHILS % (AUTO) 0.4 % (0.0-2.0); EOSINOPHILS % (AUTO) 0.1 % (1.0-6.0); HEMATOCRIT 47.7 % (41-53); HEMOGLOBIN 16.1 g/dL (13.5-17.5); LYMPHOCYTES # (AUTO) 1.7 K/uL (1.0-4.8); LYMPHOCYTES % (AUTO) 6.6 % (22.0-44.0); MEAN CORPUSCULAR HEMOGLOBIN 30.3 pg (26.0-34.0); MEAN CORPUSCULAR HGB CONC 33.7 G/dL (31.0-37.0); MEAN CORPUSCULAR VOLUME 90 fL (80-100); MONOCYTES # (AUTO) 2.3 K/uL (0.1-1.0); MONOCYTES % (AUTO) 8.8 % (2.0-9.0); NEUTROPHILS # (AUTO) 22.4 K/uL (1.8-7.7); NEUTROPHILS % (AUTO) 84.1 % (40.0-70.0); PLATELET COUNT (AUTO) 375 K/uL (150-450); RED CELL DISTRIBUTION WIDTH 13.5 % (11.5-14.5)
[2019-01-04 20:30] LABS: ANION GAP 25 mmol/L (8-16); CALCIUM, TOTAL 9.8 mg/dL (8.8-10.5); CARBON DIOXIDE 14 mmol/L (22-29); CHLORIDE 102 mmol/L (98-107); CREATININE 1.32 mg/dL (0.60-1.30); GLOMERULAR FILTR. RATE CALC > 60 mL/min (>60); GLUCOSE,RANDOM 107 mg/dL (70-110); POTASSIUM 3.8 mmol/L (3.5-5.1); SODIUM SERUM 141 mmol/L (136-145); UREA NITROGEN, BLOOD 44 mg/dL (7-18)
[2019-01-04 21:11] LABS: GLUCOSE,POINT OF CARE 182 MG/DL (70-110)
[2019-01-04] MEDS ORDERED: OLANZapine 5 MG TABLET PO ONE (21:30)
[2019-01-04] MEDS ORDERED: SODIUM CHLORIDE 0.9% 1,000 ML IV ONE (22:15)
== END 2019-01-04 22:45 | disposition left against medical advice (07) ==
LOC: EMS 19:37
DX: F20.9 Schizophrenia, unspecified (principal); D72.829 Elevated white blood cell count, unspecified; F10.10 Alcohol abuse, uncomplicated; F15.10 Other stimulant abuse, uncomplicated; F31.9 Bipolar disorder, unspecified; F17.210 Nicotine dependence, cigarettes, uncomplicated; F12.90 Cannabis use, unspecified, uncomplicated; F19.90 Other psychoactive substance use, unspecified, uncomplicated; Z59.0 Homelessness; Z88.8 Allergy status to other drugs, medicaments and biological substances; Y90.0 Blood alcohol level of less than 20 mg/100 ml
CPT/HCPCS: 36415; 71045; 80048; 82962; 85025; 99284; G0480; J7030

== ENCOUNTER 2019-02-09 12:32 | Emergency (ER) | payer MEDICARE, OTHER ==
[~2019-02-09] VITALS: Ht 167.6 cm; Wt 65.0 kg
[~2019-02-09 12:32] MED LIST changes: -MAGOX PO
[2019-02-09 16:03] LABS: BASOPHILS % (AUTO) 1.1 % (0.0-2.0); EOSINOPHILS % (AUTO) 6.5 % (1.0-6.0); HEMATOCRIT 43.7 % (41-53); HEMOGLOBIN 14.7 g/dL (13.5-17.5); LYMPHOCYTES # (AUTO) 2.2 K/uL (1.0-4.8); LYMPHOCYTES % (AUTO) 21.6 % (22.0-44.0); MEAN CORPUSCULAR HEMOGLOBIN 30.9 pg (26.0-34.0); MEAN CORPUSCULAR HGB CONC 33.8 G/dL (31.0-37.0); MEAN CORPUSCULAR VOLUME 92 fL (80-100); MONOCYTES # (AUTO) 1.5 K/uL (0.1-1.0); MONOCYTES % (AUTO) 14.7 % (2.0-9.0); NEUTROPHILS # (AUTO) 5.7 K/uL (1.8-7.7); NEUTROPHILS % (AUTO) 56.1 % (40.0-70.0); PLATELET COUNT (AUTO) 460 K/uL (150-450); RED BLOOD CELL COUNT(AUTO) 4.77 MIL/uL (4.50-5.90); RED CELL DISTRIBUTION WIDTH 14.1 % (11.5-14.5)
[2019-02-09 16:34] LABS: ANION GAP 10 mmol/L (8-16); CALCIUM, TOTAL 8.8 mg/dL (8.8-10.5); CARBON DIOXIDE 27 mmol/L (22-29); CHLORIDE 101 mmol/L (98-107); CREATININE 0.88 mg/dL (0.60-1.30); GLOMERULAR FILTR. RATE CALC > 60 mL/min (>60); GLUCOSE,RANDOM 98 mg/dL (70-110); POTASSIUM 3.7 mmol/L (3.5-5.1); SODIUM SERUM 138 mmol/L (136-145); UREA NITROGEN, BLOOD 15 mg/dL (7-18)
[2019-02-09 16:49] LABS: ALANINE AMINOTRANSFERASE 56 U/L (12-78); ALBUMIN 3.4 g/dL (3.4-5.0); ALKALINE PHOSPHATASE 90 U/L (46-116); ASPARTATE AMINOTRANSFERASE 33 U/L (15-37); BILIRUBIN,TOTAL 0.9 mg/dL (0.1-1.0); TOTAL PROTEIN, SERUM 7.4 g/dL (6.4-8.2)
[2019-02-09 18:32] VITALS: BP 149/90
== END 2019-02-09 19:19 | disposition home or self-care (01) ==
LOC: EMS 12:33
DX: F20.9 Schizophrenia, unspecified (principal); F31.9 Bipolar disorder, unspecified; F17.210 Nicotine dependence, cigarettes, uncomplicated; F12.90 Cannabis use, unspecified, uncomplicated; F19.90 Other psychoactive substance use, unspecified, uncomplicated; Z59.0 Homelessness; Z88.8 Allergy status to other drugs, medicaments and biological substances
CPT/HCPCS: 36415; 80053; 85025; 99285; G0480

== ENCOUNTER 2019-08-13 17:52 | Emergency (ER) | payer MEDICARE, OTHER ==
[~2019-08-13] VITALS: Ht 165.1 cm; Wt 59.1 kg
[2019-08-13 20:22] VITALS: BP 149/94
== END 2019-08-13 20:30 | disposition home or self-care (01) ==
LOC: EMS 17:52
DX: F20.9 Schizophrenia, unspecified (principal); F11.10 Opioid abuse, uncomplicated; F31.9 Bipolar disorder, unspecified; F17.210 Nicotine dependence, cigarettes, uncomplicated; F12.90 Cannabis use, unspecified, uncomplicated; Z59.0 Homelessness; Z88.8 Allergy status to other drugs, medicaments and biological substances

== ENCOUNTER 2019-08-14 14:58 | Emergency (ER) | payer MEDICARE, OTHER ==
[~2019-08-14] VITALS: Ht 167.6 cm; Wt 63.6 kg
[2019-08-14 16:30] VITALS: BP 131/83
== END 2019-08-14 17:31 | disposition home or self-care (01) ==
LOC: EMS 15:00
DX: S00.93XA Contusion of unspecified part of head, initial encounter (principal); F20.9 Schizophrenia, unspecified; F31.9 Bipolar disorder, unspecified; F17.210 Nicotine dependence, cigarettes, uncomplicated; F12.90 Cannabis use, unspecified, uncomplicated; F19.90 Other psychoactive substance use, unspecified, uncomplicated; Z59.0 Homelessness; Z88.8 Allergy status to other drugs, medicaments and biological substances; W19.XXXA Unspecified fall, initial encounter; Y93.89 Activity, other specified; Y92.521 Bus station as the place of occurrence of the external cause; Y99.8 Other external cause status

== ENCOUNTER 2019-10-16 17:32 | Emergency (ER) | payer MEDICARE, OTHER ==
[~2019-10-16] VITALS: Ht 177.8 cm; Wt 90.9 kg
[2019-10-16 20:30] VITALS: BP 109/68
== END 2019-10-16 20:45 | disposition home or self-care (01) ==
LOC: EMS 17:32
DX: E86.0 Dehydration (principal); F10.10 Alcohol abuse, uncomplicated; R51 Headache; F17.210 Nicotine dependence, cigarettes, uncomplicated; F20.9 Schizophrenia, unspecified; F31.9 Bipolar disorder, unspecified; F12.90 Cannabis use, unspecified, uncomplicated; F19.90 Other psychoactive substance use, unspecified, uncomplicated; Z59.0 Homelessness; Z88.8 Allergy status to other drugs, medicaments and biological substances
CPT/HCPCS: 99406

== ENCOUNTER 2019-10-28 22:10 | Emergency (ER) | payer MEDICARE, OTHER ==
[~2019-10-28] VITALS: Ht 160 cm; Wt 65.9 kg
[2019-10-28 22:31] VITALS: BP 123/79
[2019-10-28 23:46] LABS: GLUCOSE,POINT OF CARE 76 MG/DL (70-110)
== END 2019-10-29 01:12 | disposition home or self-care (01) ==
LOC: EMS 22:11
DX: F10.129 Alcohol abuse with intoxication, unspecified (principal); F17.210 Nicotine dependence, cigarettes, uncomplicated; F12.90 Cannabis use, unspecified, uncomplicated; F15.90 Other stimulant use, unspecified, uncomplicated; F20.9 Schizophrenia, unspecified; F31.9 Bipolar disorder, unspecified; Z59.0 Homelessness; Y90.9 Presence of alcohol in blood, level not specified

== ENCOUNTER 2019-10-29 07:54 | Emergency (ER) | payer MEDICARE, OTHER ==
[~2019-10-29] VITALS: Ht 170.2 cm; Wt 61.4 kg
[2019-10-29 08:38] VITALS: BP 147/99
== END 2019-10-29 09:34 | disposition home or self-care (01) ==
LOC: EMS 07:55
DX: T73.0XXA Starvation, initial encounter (principal); F31.9 Bipolar disorder, unspecified; F20.9 Schizophrenia, unspecified; F17.210 Nicotine dependence, cigarettes, uncomplicated; F12.90 Cannabis use, unspecified, uncomplicated; F19.90 Other psychoactive substance use, unspecified, uncomplicated; Z59.0 Homelessness; Z88.8 Allergy status to other drugs, medicaments and biological substances; X58.XXXA Exposure to other specified factors, initial encounter
CPT/HCPCS: 99283; Z7502

== ENCOUNTER 2020-01-31 17:46 | Emergency (ER) | payer MEDICARE, OTHER ==
[~2020-01-31] VITALS: Ht 185.4 cm; Wt 90.9 kg
[2020-01-31 22:50] LABS: GLUCOSE,POINT OF CARE 92 MG/DL (70-110)
[2020-02-01 02:00] VITALS: BP 123/64
== END 2020-02-01 02:10 | disposition home or self-care (01) ==
LOC: EMS 17:56
DX: F10.129 Alcohol abuse with intoxication, unspecified (principal); F31.9 Bipolar disorder, unspecified; F20.9 Schizophrenia, unspecified; F17.210 Nicotine dependence, cigarettes, uncomplicated; F12.90 Cannabis use, unspecified, uncomplicated; F19.90 Other psychoactive substance use, unspecified, uncomplicated; Z59.0 Homelessness; Z88.8 Allergy status to other drugs, medicaments and biological substances

== ENCOUNTER 2020-05-24 18:40 | Emergency (ER) | payer MEDICARE, OTHER ==
[~2020-05-24] VITALS: Ht 162.6 cm; Wt 90.0 kg
[2020-05-24] MEDS ORDERED: ACETAMINOPHEN 500 MG TABLET PO ONE (19:45)
[2020-05-24 21:50] VITALS: BP 127/81
== END 2020-05-24 22:08 | disposition home or self-care (01) ==
LOC: EMS 18:43
DX: M79.10 Myalgia, unspecified site (principal); F41.9 Anxiety disorder, unspecified; F20.9 Schizophrenia, unspecified; F17.210 Nicotine dependence, cigarettes, uncomplicated; F12.90 Cannabis use, unspecified, uncomplicated; F19.90 Other psychoactive substance use, unspecified, uncomplicated; Z59.0 Homelessness; Z88.8 Allergy status to other drugs, medicaments and biological substances
CPT/HCPCS: 99283

== ENCOUNTER 2021-04-08 13:22 | Inpatient (IN) | payer MEDICARE, MEDICAID ==
[~2021-04-08] VITALS: Ht 185.4 cm; Wt 63.5 kg
[2021-04-08 15:53] LABS: BASOPHILS % (AUTO) 0.8 % (0.0-2.0); EOSINOPHILS % (AUTO) 3.4 % (1.0-6.0); HEMATOCRIT 42.7 % (41-53); HEMOGLOBIN 14.4 g/dL (13.5-17.5); LYMPHOCYTES # (AUTO) 2.3 K/uL (1.0-4.8); LYMPHOCYTES % (AUTO) 18.4 % (22.0-44.0); MEAN CORPUSCULAR HGB CONC 33.7 G/dL (31.0-37.0); MEAN CORPUSCULAR VOLUME 86 fL (80-100); MONOCYTES % (AUTO) 15.5 % (2.0-9.0); NEUTROPHILS # (AUTO) 7.9 K/uL (1.8-7.7); NEUTROPHILS % (AUTO) 61.9 % (40.0-70.0); PLATELET COUNT (AUTO) 482 K/uL (150-450); RED BLOOD CELL COUNT(AUTO) 4.96 MIL/uL (4.50-5.90); RED CELL DISTRIBUTION WIDTH 12.9 % (11.5-14.5)
[2021-04-08 16:02] LABS: ANION GAP 9 mmol/L (8-16); CARBON DIOXIDE 27 mmol/L (22-29); CHLORIDE 102 mmol/L (98-107); CREATININE 0.63 mg/dL (0.60-1.30); GLOMERULAR FILTR. RATE CALC > 60 mL/min (>60); GLUCOSE,RANDOM 95 mg/dL (70-110); POTASSIUM 3.6 mmol/L (3.5-5.1); SODIUM SERUM 138 mmol/L (136-145); UREA NITROGEN, BLOOD 21 mg/dL (7-18)
[2021-04-08 16:08] LABS: ALANINE AMINOTRANSFERASE 43 U/L (12-78); ALBUMIN 2.8 g/dL (3.4-5.0); ALKALINE PHOSPHATASE 99 U/L (46-116); ASPARTATE AMINOTRANSFERASE 24 U/L (15-37); BILIRUBIN,TOTAL 0.3 mg/dL (0.1-1.0); TOTAL PROTEIN, SERUM 7.6 g/dL (6.4-8.2)
[2021-04-08 16:17] LABS: COVID AG,FIA SOURCE NASOPHARYNGEAL
[2021-04-09] MEDS ORDERED: PERMETHRIN 5% 60 GM CREAM TP ONE
[2021-04-09 00:31] LABS: CHOL/HDL RATIO 3.1 (4.2-7.3); CHOLESTEROL 125 mg/dL (131-200); HDL CHOLESTEROL 40 mg/dL (40-60); LDL CHOL (CALC.) 65 mg/dL (0-130); TRIGLYCERIDES 100 mg/dL (15-150)
[2021-04-09] MEDS: LORazepam 2 MG TABLET PO PRN (06:12)
[2021-04-09] MEDS: OLANZapine 5 MG RAPDIS TABLET PO PRN (06:12)
[2021-04-09] MEDS ORDERED: DOCUSATE SODIUM 100 MG CAPSULE PO PRN (08:00)
[2021-04-09] MEDS ORDERED: ACETAMINOPHEN 325 MG TABLET PO PRN (08:00)
[2021-04-09] MEDS ORDERED: ALBUTEROL SULFATE HFA 90 MCG/PUFF 8 GM INHALER IH PRN (08:00)
[2021-04-09] MEDS ORDERED: GuaiFENesin/D-METHORPHAN [SUGAR-FREE] 200-20MG/10 ML SYRUP UDCUP PO PRN (08:00)
[2021-04-09] MEDS ORDERED: ONDANSETRON HCL 4 MG TABLET PO PRN (08:00)
[2021-04-09] MEDS ORDERED: LOPERAMIDE HCL 2 MG CAPSULE PO PRN (08:00)
[2021-04-09] MEDS ORDERED: NICOTINE 14 MG/24 HOUR PATCH TD PRN (08:00)
[2021-04-09] MEDS ORDERED: PETROLATUM,WHITE 28 GM JELLY TP PRN (08:00)
[2021-04-09] MEDS ORDERED: IBUPROFEN 400 MG TABLET PO PRN (08:00)
[2021-04-09] MEDS ORDERED: MAGNESIUM HYDROXIDE SUSPENSION 30 ML UDCUP PO PRN (08:00)
[2021-04-09] MEDS ORDERED: CloNIDine HCL 0.1 MG TABLET PO PRN (08:00)
[2021-04-09] MEDS ORDERED: MAG HYDROX/AL HYDROX/SIMETH ES 30 ML SUSPENSION UDCUP PO PRN (08:00)
[2021-04-09 11:17] VITALS: BP 145/90
[2021-04-09 16:42] VITALS: BP 150/90
[2021-04-09 19:01] VITALS: BP 140/86
[2021-04-10 00:19] VITALS: BP 137/82
[2021-04-10 08:13] VITALS: BP 150/106
[2021-04-10 16:26] VITALS: BP 145/99
[2021-04-10] MEDS: LORazepam 2 MG TABLET PO PRN (16:35)
[2021-04-10] MEDS: OLANZapine 5 MG TABLET PO SCH (20:38)
[2021-04-11 05:26] VITALS: BP 136/78
[2021-04-11 08:25] VITALS: BP 151/94
[2021-04-11] MEDS: OLANZapine 5 MG TABLET PO SCH ×2 (08:59→20:33)
[2021-04-11 16:16] VITALS: BP 141/86
[2021-04-11] MEDS: LORazepam 2 MG TABLET PO PRN (16:49)
[2021-04-12 01:22] VITALS: BP 152/93
[2021-04-12 08:16] VITALS: BP 142/91
[2021-04-12] MEDS: OLANZapine 5 MG TABLET PO SCH ×2 (09:34→20:03)
[2021-04-12] MEDS: LORazepam 2 MG TABLET PO PRN ×2 (09:34→16:59)
[2021-04-12 16:11] VITALS: BP 145/86
[2021-04-13 01:37] VITALS: BP 136/79
[2021-04-13] MEDS: OLANZapine 5 MG RAPDIS TABLET PO PRN (08:51)
[2021-04-13] MEDS: OLANZapine 5 MG TABLET PO SCH ×2 (08:56→19:55)
[2021-04-13 09:22] VITALS: BP 110/60
[2021-04-13 12:32] LABS: GLUCOMETER DEV NAME(LOC) POC.BV
[2021-04-13 16:08] VITALS: BP 140/92
[2021-04-14] VITALS (7 sets, daily range): BP systolic 110–143; BP diastolic 71–97
[2021-04-14] MEDS: OLANZapine 5 MG RAPDIS TABLET PO PRN (02:20)
[2021-04-14] MEDS: LORazepam 2 MG TABLET PO PRN (02:20)
[2021-04-14] MEDS: OLANZapine 5 MG TABLET PO SCH ×2 (09:00→20:33)
[2021-04-15] VITALS (8 sets, daily range): BP systolic 136–146; BP diastolic 72–91
[2021-04-15] MEDS: MULTIVITAMINS WITH MINERALS, THERAPEUTIC TABLET PO SCH (09:13)
[2021-04-15] MEDS: OLANZapine 5 MG TABLET PO SCH ×2 (09:13→20:34)
[2021-04-15] MEDS: FOLIC ACID 1 MG TABLET PO SCH (09:13)
[2021-04-15] MEDS: LORazepam 2 MG TABLET PO PRN ×2 (09:14→20:34)
[2021-04-15] MEDS: THIAMINE 100 MG TABLET PO SCH (09:14)
[2021-04-16] VITALS (9 sets, daily range): BP systolic 125–146; BP diastolic 68–98
[2021-04-16] MEDS: MULTIVITAMINS WITH MINERALS, THERAPEUTIC TABLET PO SCH (08:47)
[2021-04-16] MEDS: FOLIC ACID 1 MG TABLET PO SCH (08:47)
[2021-04-16] MEDS: OLANZapine 5 MG TABLET PO SCH ×2 (08:48→20:02)
[2021-04-16] MEDS: THIAMINE 100 MG TABLET PO SCH (08:48)
[2021-04-16] MEDS: LORazepam 2 MG TABLET PO PRN (19:51)
[2021-04-16] MEDS ORDERED: ZOLPIDEM TARTRATE 10 MG TABLET PO PRN (21:00)
[2021-04-17] VITALS (10 sets, daily range): BP systolic 129–143; BP diastolic 67–82
[2021-04-17] MEDS: OLANZapine 5 MG RAPDIS TABLET PO PRN (08:40)
[2021-04-17] MEDS: THIAMINE 100 MG TABLET PO SCH (08:40)
[2021-04-17] MEDS: MULTIVITAMINS WITH MINERALS, THERAPEUTIC TABLET PO SCH (08:40)
[2021-04-17] MEDS: FOLIC ACID 1 MG TABLET PO SCH (08:40)
[2021-04-17] MEDS: OLANZapine 5 MG TABLET PO SCH ×2 (08:41→21:38)
[2021-04-17] MEDS: LORazepam 2 MG TABLET PO PRN (08:45)
[2021-04-17] MEDS ORDERED: OLAN5TAB52 PO ×2 (10:35→15:42)
[2021-04-18 00:15] VITALS: BP 128/80
[2021-04-18 02:19] VITALS: BP 133/86
[2021-04-18 04:38] VITALS: BP 120/82
[2021-04-18 08:11] VITALS: BP 139/71
[2021-04-18] MEDS: THIAMINE 100 MG TABLET PO SCH (08:32)
[2021-04-18] MEDS: FOLIC ACID 1 MG TABLET PO SCH (08:32)
[2021-04-18] MEDS: MULTIVITAMINS WITH MINERALS, THERAPEUTIC TABLET PO SCH (08:32)
[2021-04-18] MEDS: OLANZapine 5 MG TABLET PO SCH (08:50)
[2021-04-18 09:56] LABS: GLUCOMETER DEV NAME(LOC) POC.BV
[2021-04-18 10:20] VITALS: BP 151/95
== END 2021-04-18 16:15 | disposition home or self-care (01) | DRG 885 ==
LOC: EMS 13:22 → B2X 04-09 09:12
PROVIDERS: ADMIT Psychiatry & Neurology Psychiatry; ATTEND Psychiatry & Neurology Psychiatry
DX: F25.1 Schizoaffective disorder, depressive type (principal); E43 Unspecified severe protein-calorie malnutrition; R45.851 Suicidal ideations; Z68.1 Body mass index [BMI] 19.9 or less, adult; Z20.822 Contact with and (suspected) exposure to COVID-19; F15.10 Other stimulant abuse, uncomplicated; D72.829 Elevated white blood cell count, unspecified; B85.0 Pediculosis due to Pediculus humanus capitis; G80.9 Cerebral palsy, unspecified; F17.210 Nicotine dependence, cigarettes, uncomplicated; K21.9 Gastro-esophageal reflux disease without esophagitis; R00.0 Tachycardia, unspecified; F31.9 Bipolar disorder, unspecified; F12.10 Cannabis abuse, uncomplicated; I10 Essential (primary) hypertension; Z59.00 Homelessness unspecified; Z78.9 Other specified health status; Z88.8 Allergy status to other drugs, medicaments and biological substances; Z71.51 Drug abuse counseling and surveillance of drug abuser
CPT/HCPCS: 80053; 80061; 85025; 99285; G0480

== ENCOUNTER 2021-10-10 10:30 | Emergency (ER) | payer MEDICARE, OTHER ==
[~2021-10-10] VITALS: Ht 170.2 cm; Wt 77.3 kg
[~2021-10-10 10:30] MED LIST changes: -OLAN5TAB2 PO; +OLAN5TAB52 PO
[2021-10-10 10:47] VITALS: BP 136/82
== END 2021-10-10 15:47 | disposition left against medical advice (07) ==
LOC: EMS 10:30
DX: Z53.21 Procedure and treatment not carried out due to patient leaving prior to being seen by health care provider (principal)

== ENCOUNTER 2021-12-01 11:55 | Emergency (ER) | payer MEDICARE, OTHER ==
[~2021-12-01] VITALS: Ht 190.5 cm; Wt 81.8 kg
[2021-12-01] MEDS ORDERED: PERMETHRIN 5% 60 GM CREAM TP ONE (13:00)
[2021-12-01 13:29] VITALS: BP 158/99
== END 2021-12-01 14:00 | disposition home or self-care (01) ==
LOC: EMS 11:59
DX: B86 Scabies (principal); F10.20 Alcohol dependence, uncomplicated; F31.9 Bipolar disorder, unspecified; F20.9 Schizophrenia, unspecified; G80.9 Cerebral palsy, unspecified; F17.210 Nicotine dependence, cigarettes, uncomplicated; F12.90 Cannabis use, unspecified, uncomplicated; F15.90 Other stimulant use, unspecified, uncomplicated; Z59.00 Homelessness unspecified; Z88.8 Allergy status to other drugs, medicaments and biological substances
CPT/HCPCS: 99283

== ENCOUNTER 2022-07-17 13:01 | Emergency (ER) | payer MEDICARE, OTHER ==
[~2022-07-17] VITALS: Ht 180.3 cm; Wt 81.8 kg
[2022-07-17 13:15] VITALS: BP 153/107
[2022-07-17] MEDS ORDERED: KETOROLAC TROMETHAMINE 30 MG/ML VIAL IM ONE (14:45)
[2022-07-17 15:26] LABS: BASOPHILS % (AUTO) 0.8 % (0.0-2.0); EOSINOPHILS % (AUTO) 7.2 % (1.0-6.0); HEMATOCRIT 40.3 % (41-53); LYMPHOCYTES # (AUTO) 2.3 K/uL (1.0-4.8); LYMPHOCYTES % (AUTO) 21.9 % (22.0-44.0); MEAN CORPUSCULAR HEMOGLOBIN 27.7 pg (26.0-34.0); MEAN CORPUSCULAR HGB CONC 32.4 G/dL (31.0-37.0); MEAN CORPUSCULAR VOLUME 85 fL (80-100); MONOCYTES # (AUTO) 0.8 K/uL (0.1-1.0); MONOCYTES % (AUTO) 7.9 % (2.0-9.0); NEUTROPHILS # (AUTO) 6.5 K/uL (1.8-7.7); NEUTROPHILS % (AUTO) 62.2 % (40.0-70.0); PLATELET COUNT (AUTO) 546 K/uL (150-450); RED BLOOD CELL COUNT(AUTO) 4.71 MIL/uL (4.50-5.90); RED CELL DISTRIBUTION WIDTH 14.9 % (11.5-14.5)
[2022-07-17 15:33] LABS: ANION GAP 12 mmol/L (8-16); CALCIUM, TOTAL 8.7 mg/dL (8.8-10.5); CARBON DIOXIDE 22 mmol/L (22-29); CHLORIDE 104 mmol/L (98-107); CREATININE 0.57 mg/dL (0.60-1.30); GLOMERULAR FILTR. RATE CALC > 60 mL/min (>60); GLUCOSE,RANDOM 113 mg/dL (70-110); POTASSIUM 3.6 mmol/L (3.5-5.1); SODIUM SERUM 138 mmol/L (136-145); UREA NITROGEN, BLOOD 17 mg/dL (7-18)
[2022-07-17 15:39] LABS: ALANINE AMINOTRANSFERASE 38 U/L (12-78); ALBUMIN 3.2 g/dL (3.4-5.0); ALKALINE PHOSPHATASE 108 U/L (46-116); ASPARTATE AMINOTRANSFERASE 22 U/L (15-37); BILIRUBIN,TOTAL 0.3 mg/dL (0.1-1.0); TOTAL PROTEIN, SERUM 7.3 g/dL (6.4-8.2)
== END 2022-07-17 16:36 | disposition left against medical advice (07) ==
LOC: EMS 13:09
DX: R07.9 Chest pain, unspecified (principal); M79.645 Pain in left finger(s); F10.20 Alcohol dependence, uncomplicated; F31.9 Bipolar disorder, unspecified; F20.9 Schizophrenia, unspecified; F17.210 Nicotine dependence, cigarettes, uncomplicated; F12.90 Cannabis use, unspecified, uncomplicated; F15.90 Other stimulant use, unspecified, uncomplicated; G80.9 Cerebral palsy, unspecified; Z59.00 Homelessness unspecified; Z88.8 Allergy status to other drugs, medicaments and biological substances
CPT/HCPCS: 99284; 80053; 85025; 36415; 73130; 96372; G0480; J1885

== ENCOUNTER 2022-08-04 19:31 | Inpatient (IN) | payer MEDICARE, MEDICAID ==
[~2022-08-04] VITALS: Ht 182.9 cm; Wt 77.1 kg
[2022-08-04 21:51] LABS: COVID AG,FIA SOURCE NASAL SWAB
[2022-08-04 21:54] LABS: BASOPHILS % (AUTO) 0.9 % (0.0-2.0); EOSINOPHILS % (AUTO) 8.6 % (1.0-6.0); HEMOGLOBIN 13.4 g/dL (13.5-17.5); LYMPHOCYTES # (AUTO) 2.4 K/uL (1.0-4.8); LYMPHOCYTES % (AUTO) 26.6 % (22.0-44.0); MEAN CORPUSCULAR HGB CONC 32.6 G/dL (31.0-37.0); MEAN CORPUSCULAR VOLUME 86 fL (80-100); MONOCYTES # (AUTO) 0.9 K/uL (0.1-1.0); MONOCYTES % (AUTO) 9.3 % (2.0-9.0); NEUTROPHILS % (AUTO) 54.6 % (40.0-70.0); PLATELET COUNT (AUTO) 410 K/uL (150-450); RED BLOOD CELL COUNT(AUTO) 4.77 MIL/uL (4.50-5.90); RED CELL DISTRIBUTION WIDTH 14.8 % (11.5-14.5)
[2022-08-04 22:03] LABS: ANION GAP 8 mmol/L (8-16); CALCIUM, TOTAL 8.6 mg/dL (8.8-10.5); CARBON DIOXIDE 26 mmol/L (22-29); CHLORIDE 106 mmol/L (98-107); CREATININE 0.62 mg/dL (0.60-1.30); GLOMERULAR FILTR. RATE CALC > 60 mL/min (>60); GLUCOSE,RANDOM 117 mg/dL (70-110); POTASSIUM 3.2 mmol/L (3.5-5.1); SODIUM SERUM 140 mmol/L (136-145); UREA NITROGEN, BLOOD 16 mg/dL (7-18)
[2022-08-04 22:08] LABS: ALANINE AMINOTRANSFERASE 25 U/L (12-78); ALBUMIN 3.2 g/dL (3.4-5.0); ALKALINE PHOSPHATASE 99 U/L (46-116); ASPARTATE AMINOTRANSFERASE 18 U/L (15-37); BILIRUBIN,TOTAL 0.2 mg/dL (0.1-1.0); TOTAL PROTEIN, SERUM 6.8 g/dL (6.4-8.2)
[2022-08-05 02:47] LABS: AMPHET/METH SCREEN,URINE POSITIVE (NEGATIVE); BARBITURATE SCREEN, URINE NEGATIVE (NEGATIVE); BENZODIAZEPINES SCREEN,URINE NEGATIVE (NEGATIVE); CANNABINOID SCREEN,URINE NEGATIVE (NEGATIVE); COCAINE SCREEN,URINE NEGATIVE (NEGATIVE); METHADONE SCREEN, URINE NEGATIVE (NEGATIVE); OPIATE SCREEN,URINE NEGATIVE (NEGATIVE); PHENCYCLIDINE SCREEN,URINE NEGATIVE (NEGATIVE)
[2022-08-05 02:50] LABS: APPEARANCE,URINE CLEAR (CLEAR); BILIRUBIN,URINE NEGATIVE (NEGATIVE); GLUCOSE, URINE (UA) NEGATIVE (NEGATIVE); KETONES,URINE NEGATIVE (NEGATIVE); LEUKOCYTE ESTERASE ,URINE NEGATIVE (NEGATIVE); NITRATE,URINE NEGATIVE (NEGATIVE); OCCULT BLOOD,URINE NEGATIVE (NEGATIVE); PROTEIN,URINE NEGATIVE (NEGATIVE); SPECIFIC GRAVITIY, URINE 1.023 (1.003-1.030); UROBILINOGEN,URINE <=1.0 mg/dL (<=1.0)
[2022-08-05] MEDS ORDERED: POTASSIUM CHLORIDE 10% 40 MEQ/30 ML LIQUID UDCUP PO ONE (12:45)
[2022-08-06] MEDS ORDERED: MIDAZOLAM HCL 5 MG/ML VIAL IM ONE
[2022-08-06] MEDS ORDERED: DOPamine 400MG/D5W[STANDARD] 250 ML IV PRN (00:45)
[2022-08-06 01:15] VITALS: BP 151/97
[2022-08-06] MEDS ORDERED: PNEUMOCOCCAL VACCINE POLYVALENT 0.5 ML VIAL [PPSV23] IM. ONE (03:15)
[2022-08-06 08:00] VITALS: BP 145/80
[2022-08-06 09:54] VITALS: BP 145/80
[2022-08-06] MEDS: LORazepam 2 MG TABLET PO PRN (13:36)
[2022-08-06] MEDS: OLANZapine 5 MG RAPDIS TABLET PO PRN (13:36)
[2022-08-06 16:42] VITALS: BP 152/93
[2022-08-06] MEDS ORDERED: MAGNESIUM HYDROXIDE SUSPENSION 30 ML UDCUP PO PRN (17:00)
[2022-08-06] MEDS ORDERED: BACITRACIN 28 GM OINTMENT TP PRN (17:00)
[2022-08-06] MEDS ORDERED: LOPERAMIDE HCL 2 MG CAPSULE PO PRN (17:00)
[2022-08-06] MEDS ORDERED: ONDANSETRON HCL 4 MG TABLET PO PRN (17:00)
[2022-08-06] MEDS ORDERED: CloNIDine HCL 0.1 MG TABLET PO PRN (17:00)
[2022-08-06] MEDS ORDERED: MAG HYDROX/AL HYDROX/SIMETH ES 30 ML SUSPENSION UDCUP PO PRN (17:00)
[2022-08-06] MEDS ORDERED: IBUPROFEN 600 MG TABLET PO PRN (17:00)
[2022-08-06] MEDS ORDERED: DOCUSATE SODIUM 100 MG CAPSULE PO PRN (17:00)
[2022-08-06] MEDS ORDERED: ALBUTEROL SULFATE HFA 90 MCG/PUFF 8 GM INHALER IH PRN (17:00)
[2022-08-06] MEDS ORDERED: PETROLATUM,WHITE 28 GM JELLY TP PRN (17:00)
[2022-08-06] MEDS ORDERED: OMEPRAZOLE 20 MG CAPSULE PO PRN (17:00)
[2022-08-06] MEDS: LISINOPRIL 10 MG TABLET PO SCH (17:09)
[2022-08-06] MEDS: OLANZapine 5 MG TABLET PO SCH (20:39)
[2022-08-07] MEDS: LISINOPRIL 10 MG TABLET PO SCH (08:57)
[2022-08-07 09:29] VITALS: BP 132/76
[2022-08-07 18:40] VITALS: BP 136/78
[2022-08-07] MEDS: ACETAMINOPHEN 325 MG TABLET PO PRN (18:40)
[2022-08-07 20:30] VITALS: BP 145/86
[2022-08-07] MEDS: OLANZapine 5 MG TABLET PO SCH (21:16)
[2022-08-07] MEDS: ZOLPIDEM TARTRATE 10 MG TABLET PO PRN (21:17)
[2022-08-08 04:38] VITALS: BP 138/82
[2022-08-08] MEDS: ACETAMINOPHEN 325 MG TABLET PO PRN (04:43)
[2022-08-08 08:00] VITALS: BP_SYST 103; BP_SYST 154; BP_DIAS 60; BP_DIAS 90
[2022-08-08] MEDS: LISINOPRIL 10 MG TABLET PO SCH (08:53)
[2022-08-08 16:37] VITALS: BP 134/85
[2022-08-08] MEDS: OLANZapine 5 MG TABLET PO SCH (21:12)
[2022-08-08] MEDS: ZOLPIDEM TARTRATE 10 MG TABLET PO PRN (21:12)
[2022-08-08 21:22] VITALS: BP 136/85
[2022-08-09] MEDS: LISINOPRIL 10 MG TABLET PO SCH (09:12)
[2022-08-09 09:40] VITALS: BP 142/92
[2022-08-09 17:09] VITALS: BP 129/77
[2022-08-09 20:36] VITALS: BP 133/74
[2022-08-09] MEDS: OLANZapine 5 MG TABLET PO SCH (20:49)
[2022-08-09] MEDS: ZOLPIDEM TARTRATE 10 MG TABLET PO PRN (20:50)
[2022-08-10] MEDS: LISINOPRIL 10 MG TABLET PO SCH (09:19)
[2022-08-10 10:06] VITALS: BP 139/93
[2022-08-10] MEDS: LORazepam 2 MG TABLET PO PRN (12:56)
[2022-08-10 16:48] VITALS: BP 129/79
[2022-08-10] MEDS: OLANZapine 5 MG TABLET PO SCH (20:27)
[2022-08-10] MEDS: ZOLPIDEM TARTRATE 10 MG TABLET PO PRN (20:27)
[2022-08-11 08:00] VITALS: BP 129/80
[2022-08-11 09:33] LABS: COVID AG,FIA SOURCE NASAL SWAB
[2022-08-11] MEDS: LISINOPRIL 10 MG TABLET PO SCH (09:35)
[2022-08-11 18:11] VITALS: BP 132/89
[2022-08-11 20:30] VITALS: BP 133/90
[2022-08-11] MEDS: OLANZapine 5 MG TABLET PO SCH (20:37)
[2022-08-11] MEDS: ZOLPIDEM TARTRATE 10 MG TABLET PO PRN (20:37)
[2022-08-12] VITALS (8 sets, daily range): BP systolic 115–139; BP diastolic 68–84
[2022-08-12] MEDS: LISINOPRIL 10 MG TABLET PO SCH (10:09)
[2022-08-12] MEDS: ZOLPIDEM TARTRATE 10 MG TABLET PO PRN (20:42)
[2022-08-12] MEDS: OLANZapine 5 MG TABLET PO SCH (20:42)
[2022-08-13 00:20] VITALS: BP 128/75
[2022-08-13] MEDS: LISINOPRIL 10 MG TABLET PO SCH (09:35)
[2022-08-13 10:29] VITALS: BP 153/90
[2022-08-13 17:46] VITALS: BP 112/65
[2022-08-13] MEDS: OLANZapine 5 MG TABLET PO SCH (20:18)
[2022-08-13 21:08] VITALS: BP 111/60
[2022-08-13] MEDS: OLANZapine 5 MG RAPDIS TABLET PO PRN (21:53)
[2022-08-14] MEDS: LISINOPRIL 10 MG TABLET PO SCH (10:00)
[2022-08-14 10:27] VITALS: BP 129/84
[2022-08-14 16:36] VITALS: BP 150/89
[2022-08-14] MEDS: OLANZapine 5 MG TABLET PO SCH (20:56)
[2022-08-14 21:51] VITALS: BP 137/85
[2022-08-14] MEDS: OLANZapine 5 MG RAPDIS TABLET PO PRN (22:44)
[2022-08-15 08:30] VITALS: BP 140/101
[2022-08-15] MEDS: LISINOPRIL 10 MG TABLET PO SCH (09:02)
[2022-08-15] MEDS: OLANZapine 5 MG TABLET PO SCH (21:31)
[2022-08-15] MEDS: LORazepam 2 MG TABLET PO PRN (21:31)
[2022-08-15 21:56] VITALS: BP 123/71
[2022-08-16 09:21] VITALS: BP 114/75
[2022-08-16] MEDS: LISINOPRIL 10 MG TABLET PO SCH (10:31)
[2022-08-16 17:01] VITALS: BP 133/78
[2022-08-16] MEDS ORDERED: OLAN5TAB52 PO (17:48)
[2022-08-16] MEDS: OLANZapine 5 MG RAPDIS TABLET PO PRN ×2 (21:20→21:21)
[2022-08-16] MEDS: OLANZapine 5 MG TABLET PO SCH (21:20)
[2022-08-16] MEDS: ZOLPIDEM TARTRATE 10 MG TABLET PO PRN (21:20)
[2022-08-17 08:40] VITALS: BP 144/94
[2022-08-17] MEDS: LISINOPRIL 10 MG TABLET PO SCH (08:47)
[2022-08-17] MEDS ORDERED: LISI-893 PO (11:01)
== END 2022-08-17 16:23 | disposition home or self-care (01) | DRG 885 ==
LOC: EMS 19:32 → 3EX 08-05 23:40 → UNDOADMIN 08-05 23:40
PROVIDERS: ADMIT Psychiatry & Neurology Psychiatry; ATTEND Psychiatry & Neurology Psychiatry
PROC: 3E0234Z Introduction of Serum, Toxoid and Vaccine into Muscle, Percutaneous Approach (ICD-10-PCS; principal; 2022-08-06)
DX: F25.1 Schizoaffective disorder, depressive type (principal); R45.851 Suicidal ideations; G80.9 Cerebral palsy, unspecified; F15.10 Other stimulant abuse, uncomplicated; I10 Essential (primary) hypertension; F41.9 Anxiety disorder, unspecified; K21.9 Gastro-esophageal reflux disease without esophagitis; E87.6 Hypokalemia; F10.20 Alcohol dependence, uncomplicated; G47.00 Insomnia, unspecified; Y90.0 Blood alcohol level of less than 20 mg/100 ml; R26.9 Unspecified abnormalities of gait and mobility; Z20.822 Contact with and (suspected) exposure to COVID-19; F17.210 Nicotine dependence, cigarettes, uncomplicated; Z88.8 Allergy status to other drugs, medicaments and biological substances; Z79.899 Other long term (current) drug therapy; Z59.00 Homelessness unspecified; Z23 Encounter for immunization
CPT/HCPCS: 80053; 80307; 81003; 84132; 85025; 87081; 97163; 97165; 97535; 99285; G0378; G0480; J2250

== ENCOUNTER 2022-09-14 18:16 | Emergency (ER) | payer MEDICARE, OTHER ==
[~2022-09-14] VITALS: Ht 177.8 cm; Wt 81.8 kg
[~2022-09-14 18:16] MED LIST changes: +LISI-893 PO
[2022-09-14] MEDS ORDERED: SODIUM CHLORIDE 0.9% 1,000 ML IV ONE (20:45)
[2022-09-14 20:50] LABS: BASOPHILS % (AUTO) 0.9 % (0.0-2.0); EOSINOPHILS % (AUTO) 11.6 % (1.0-6.0); HEMATOCRIT 41.1 % (41-53); HEMOGLOBIN 13.5 g/dL (13.5-17.5); LYMPHOCYTES # (AUTO) 2.9 K/uL (1.0-4.8); LYMPHOCYTES % (AUTO) 29.2 % (22.0-44.0); MEAN CORPUSCULAR HEMOGLOBIN 28.7 pg (26.0-34.0); MEAN CORPUSCULAR HGB CONC 32.9 G/dL (31.0-37.0); MEAN CORPUSCULAR VOLUME 87 fL (80-100); MONOCYTES # (AUTO) 0.9 K/uL (0.1-1.0); MONOCYTES % (AUTO) 8.8 % (2.0-9.0); NEUTROPHILS # (AUTO) 4.9 K/uL (1.8-7.7); NEUTROPHILS % (AUTO) 49.5 % (40.0-70.0); PLATELET COUNT (AUTO) 426 K/uL (150-450); RED BLOOD CELL COUNT(AUTO) 4.72 MIL/uL (4.50-5.90)
[2022-09-14 21:00] LABS: ANION GAP 12 mmol/L (8-16); CALCIUM, TOTAL 9.2 mg/dL (8.8-10.5); CARBON DIOXIDE 24 mmol/L (22-29); CHLORIDE 104 mmol/L (98-107); CREATININE 0.74 mg/dL (0.60-1.30); GLOMERULAR FILTR. RATE CALC > 60 mL/min (>60); GLUCOSE,RANDOM 128 mg/dL (70-110); POTASSIUM 3.5 mmol/L (3.5-5.1); SODIUM SERUM 140 mmol/L (136-145)
[2022-09-14 21:06] LABS: ALANINE AMINOTRANSFERASE 21 U/L (12-78); ALBUMIN 3.1 g/dL (3.4-5.0); ALKALINE PHOSPHATASE 92 U/L (46-116); ASPARTATE AMINOTRANSFERASE 20 U/L (15-37); BILIRUBIN,TOTAL 0.2 mg/dL (0.1-1.0)
[2022-09-14 23:19] VITALS: BP 132/69
== END 2022-09-14 23:50 | disposition home or self-care (01) ==
LOC: EMS 18:16
DX: E86.0 Dehydration (principal); F10.20 Alcohol dependence, uncomplicated; F31.9 Bipolar disorder, unspecified; F20.9 Schizophrenia, unspecified; F17.210 Nicotine dependence, cigarettes, uncomplicated; F12.90 Cannabis use, unspecified, uncomplicated; F15.90 Other stimulant use, unspecified, uncomplicated; G80.9 Cerebral palsy, unspecified; Z59.00 Homelessness unspecified; Z88.8 Allergy status to other drugs, medicaments and biological substances
CPT/HCPCS: 80053; 85025; 99283

== ENCOUNTER 2022-11-15 16:48 | Emergency (ER) | payer MEDICARE, OTHER ==
[~2022-11-15] VITALS: Ht 177.8 cm; Wt 80.0 kg
[2022-11-15 17:07] VITALS: TEMP 98
[2022-11-15] MEDS ORDERED: QUET200T30 PO (17:09)
[2022-11-15] MEDS ORDERED: TRAZ-252 PO (17:09)
[2022-11-15] MEDS ORDERED: GABA600T10 PO (17:09)
[2022-11-15] MEDS ORDERED: SODIUM CHLORIDE 0.9% 1,000 ML IV ONE (17:15)
[2022-11-15 17:21] LABS: BASOPHILS % (AUTO) 0.9 % (0.0-2.0); EOSINOPHILS % (AUTO) 0.4 % (1.0-6.0); HEMATOCRIT 44.1 % (41-53); HEMOGLOBIN 14.6 g/dL (13.5-17.5); LYMPHOCYTES # (AUTO) 2.2 K/uL (1.0-4.8); LYMPHOCYTES % (AUTO) 12.1 % (22.0-44.0); MEAN CORPUSCULAR HEMOGLOBIN 28.8 pg (26.0-34.0); MEAN CORPUSCULAR HGB CONC 33.1 G/dL (31.0-37.0); MEAN CORPUSCULAR VOLUME 87 fL (80-100); MONOCYTES # (AUTO) 2.8 K/uL (0.1-1.0); MONOCYTES % (AUTO) 15.2 % (2.0-9.0); NEUTROPHILS # (AUTO) 13.1 K/uL (1.8-7.7); NEUTROPHILS % (AUTO) 71.4 % (40.0-70.0); PLATELET COUNT (AUTO) 497 K/uL (150-450); RED BLOOD CELL COUNT(AUTO) 5.07 MIL/uL (4.50-5.90); RED CELL DISTRIBUTION WIDTH 13.9 % (11.5-14.5)
[2022-11-15 17:35] LABS: ANION GAP 20 mmol/L (8-16); CALCIUM, TOTAL 8.7 mg/dL (8.8-10.5); CARBON DIOXIDE 22 mmol/L (22-29); CHLORIDE 98 mmol/L (98-107); CREATININE 1.22 mg/dL (0.60-1.30); GLOMERULAR FILTR. RATE CALC > 60 mL/min (>60); GLUCOSE,RANDOM 140 mg/dL (70-110); POTASSIUM 3.1 mmol/L (3.5-5.1); SODIUM SERUM 140 mmol/L (136-145)
[2022-11-15 17:40] LABS: ALANINE AMINOTRANSFERASE 38 U/L (12-78); ALBUMIN 4.1 g/dL (3.4-5.0); ALKALINE PHOSPHATASE 100 U/L (46-116); ASPARTATE AMINOTRANSFERASE 36 U/L (15-37); BILIRUBIN,TOTAL 1.5 mg/dL (0.1-1.0); TOTAL PROTEIN, SERUM 8.7 g/dL (6.4-8.2)
[2022-11-15] MEDS ORDERED: OLANZapine 5 MG TABLET PO ONE (20:45)
[2022-11-15 21:00] VITALS: BP 137/84; PULSE 91; RESP 13
[2022-11-16 00:37] LABS: AMPHET/METH SCREEN,URINE NEGATIVE (NEGATIVE); BARBITURATE SCREEN, URINE NEGATIVE (NEGATIVE); BENZODIAZEPINES SCREEN,URINE NEGATIVE (NEGATIVE); CANNABINOID SCREEN,URINE NEGATIVE (NEGATIVE); COCAINE SCREEN,URINE NEGATIVE (NEGATIVE); METHADONE SCREEN, URINE NEGATIVE (NEGATIVE); OPIATE SCREEN,URINE NEGATIVE (NEGATIVE); PHENCYCLIDINE SCREEN,URINE NEGATIVE (NEGATIVE)
== END 2022-11-15 22:42 | disposition home or self-care (01) ==
LOC: EMS 16:57
DX: E86.0 Dehydration (principal); F10.20 Alcohol dependence, uncomplicated; F31.9 Bipolar disorder, unspecified; F20.9 Schizophrenia, unspecified; F17.210 Nicotine dependence, cigarettes, uncomplicated; F12.90 Cannabis use, unspecified, uncomplicated; F15.90 Other stimulant use, unspecified, uncomplicated; Z59.00 Homelessness unspecified; Z88.8 Allergy status to other drugs, medicaments and biological substances
CPT/HCPCS: 99283; 80053; 85025; 36415; 80307; G0480

== ENCOUNTER 2023-01-13 03:28 | Inpatient (IN) | payer MEDICARE, OTHER ==
[~2023-01-13] VITALS: Ht 182.9 cm; Wt 86.4 kg
[~2023-01-13 03:28] MED LIST changes: +GABA600T10 PO; +QUET200T30 PO; +TRAZ-252 PO
[2023-01-13 04:15] LABS: COVID AG,FIA SOURCE NASAL SWAB
[2023-01-13 04:36] LABS: SARS-COV2 (COVID) ANTIGEN,FIA Negative (Negative)
[2023-01-13] MEDS ORDERED: ONDANSETRON HCL 4 MG TABLET PO ONE (04:45)
[2023-01-13 04:57] LABS: BASOPHILS % (AUTO) 0.5 % (0.0-2.0); EOSINOPHILS % (AUTO) 0.3 % (1.0-6.0); HEMATOCRIT 45.8 % (41-53); HEMOGLOBIN 15.1 g/dL (13.5-17.5); LYMPHOCYTES % (AUTO) 10.2 % (22.0-44.0); MEAN CORPUSCULAR HEMOGLOBIN 28.7 pg (26.0-34.0); MEAN CORPUSCULAR VOLUME 87 fL (80-100); MONOCYTES # (AUTO) 1.9 K/uL (0.1-1.0); MONOCYTES % (AUTO) 9.4 % (2.0-9.0); NEUTROPHILS % (AUTO) 79.6 % (40.0-70.0); PLATELET COUNT (AUTO) 445 K/uL (150-450); RED BLOOD CELL COUNT(AUTO) 5.26 MIL/uL (4.50-5.90); RED CELL DISTRIBUTION WIDTH 14.5 % (11.5-14.5); WHITE BLOOD COUNT (AUTO) 20.1 K/uL (4.5-11.0)
[2023-01-13 05:04] LABS: ANION GAP 21 mmol/L (8-16); CARBON DIOXIDE 16 mmol/L (22-29); CHLORIDE 96 mmol/L (98-107); CREATININE 0.71 mg/dL (0.60-1.30); GLOMERULAR FILTR. RATE CALC > 60 mL/min (>60); GLUCOSE,RANDOM 86 mg/dL (70-110); POTASSIUM 3.1 mmol/L (3.5-5.1); SODIUM SERUM 133 mmol/L (136-145); UREA NITROGEN, BLOOD 24 mg/dL (7-18)
[2023-01-13 05:10] LABS: ALANINE AMINOTRANSFERASE 48 U/L (12-78); ALBUMIN 4.2 g/dL (3.4-5.0); ALKALINE PHOSPHATASE 110 U/L (46-116); ASPARTATE AMINOTRANSFERASE 49 U/L (15-37); BILIRUBIN,TOTAL 1.5 mg/dL (0.1-1.0); TOTAL PROTEIN, SERUM 8.8 g/dL (6.4-8.2)
[2023-01-13] MEDS ORDERED: LORazepam 2 MG/ML VIAL IVP ONE (05:15)
[2023-01-13] MEDS ORDERED: SODIUM CHLORIDE 0.9% 1,000 ML IV ONE ×2 (05:15→12:00)
[2023-01-13 05:18] LABS: ALCOHOL, BLOOD (SERUM) < 3 mg/dL (0-10)
[2023-01-13] MEDS ORDERED: IOHEXOL 350 MG/ML 100 ML VIAL ONE (05:33)
[2023-01-13] MEDS ORDERED: SODIUM CHLORIDE 0.9% 100 ML ONE (05:33)
[2023-01-13] MEDS ORDERED: POTASSIUM CHLORIDE 20 MEQ ER TABLET PO ONE (05:45)
[2023-01-13] MEDS ORDERED: DiphenhydrAMINE HCL 50 MG/ML VIAL IM ONE (11:00)
[2023-01-13] MEDS ORDERED: LORazepam 2 MG/ML VIAL IM ONE (11:00)
[2023-01-13] MEDS ORDERED: HALOPERIDOL LACTATE 5 MG/ML VIAL IM ONE (11:00)
[2023-01-13] MEDS ORDERED: ACETAMINOPHEN 325 MG TABLET PO PRN (12:00)
[2023-01-13] MEDS ORDERED: PIPERACILLIN/TAZO 3.375 GM/D5W 50 ML IV ONE (12:00)
[2023-01-13 12:45] LABS: BASOPHILS % (AUTO) 0.5 % (0.0-2.0); EOSINOPHILS % (AUTO) 0.9 % (1.0-6.0); HEMOGLOBIN 15.1 g/dL (13.5-17.5); LYMPHOCYTES # (AUTO) 2.2 K/uL (1.0-4.8); LYMPHOCYTES % (AUTO) 13.3 % (22.0-44.0); MEAN CORPUSCULAR HEMOGLOBIN 28.8 pg (26.0-34.0); MEAN CORPUSCULAR HGB CONC 32.8 G/dL (31.0-37.0); MEAN CORPUSCULAR VOLUME 88 fL (80-100); MONOCYTES # (AUTO) 2.2 K/uL (0.1-1.0); MONOCYTES % (AUTO) 13.3 % (2.0-9.0); NEUTROPHILS # (AUTO) 11.7 K/uL (1.8-7.7); PLATELET COUNT (AUTO) 369 K/uL (150-450); RED BLOOD CELL COUNT(AUTO) 5.23 MIL/uL (4.50-5.90); RED CELL DISTRIBUTION WIDTH 14.5 % (11.5-14.5); WHITE BLOOD COUNT (AUTO) 16.3 K/uL (4.5-11.0)
[2023-01-13] MEDS ORDERED: HydrALAZINE HCL 20 MG/ML VIAL IVP PRN (13:30)
[2023-01-13] MEDS: PIPERACILLIN/TAZO 3.375 GM/D5W 50 ML IV SCH (18:14)
[2023-01-13 19:54] LABS: APPEARANCE,URINE CLEAR (CLEAR); BILIRUBIN,URINE NEGATIVE (NEGATIVE); COLOR,URINE LIGHT YELLOW (YELLOW); GLUCOSE, URINE (UA) NEGATIVE (NEGATIVE); KETONES,URINE =>150 mg/dL (NEGATIVE); LEUKOCYTE ESTERASE ,URINE NEGATIVE (NEGATIVE); NITRATE,URINE NEGATIVE (NEGATIVE); OCCULT BLOOD,URINE SMALL (NEGATIVE); PROTEIN,URINE 30-70 mg/dL (NEGATIVE); SPECIFIC GRAVITIY, URINE 1.038 (1.003-1.030); UROBILINOGEN,URINE <=1.0 mg/dL (<=1.0)
[2023-01-13 20:01] LABS: AMPHET/METH SCREEN,URINE POSITIVE (NEGATIVE); BARBITURATE SCREEN, URINE NEGATIVE (NEGATIVE); BENZODIAZEPINES SCREEN,URINE NEGATIVE (NEGATIVE); CANNABINOID SCREEN,URINE NEGATIVE (NEGATIVE); COCAINE SCREEN,URINE NEGATIVE (NEGATIVE); METHADONE SCREEN, URINE NEGATIVE (NEGATIVE); OPIATE SCREEN,URINE NEGATIVE (NEGATIVE); PHENCYCLIDINE SCREEN,URINE NEGATIVE (NEGATIVE)
[2023-01-13 20:04] LABS: BACTERIA,URINE Rare /HPF (None Seen); SQUAMOUS EPITHELIAL CELL,UR Rare /LPF (None Seen); WBC,URINE 0-2 /HPF (0-5)
[2023-01-13 20:05] LABS: ALCOHOL, URINE DRUG SCREEN NEGATIVE (NEGATIVE)
[2023-01-13] MEDS ORDERED: SODIUM CHLORIDE 0.9% 250 ML IV ONE (21:13)
[2023-01-13 21:23] VITALS: BP 138/92; PULSE 114; RESP 20; TEMP 98.9
[2023-01-13] MEDS ORDERED: CYCLOBENZAPRINE HCL 10 MG TABLET PO ONE (22:00)
[2023-01-14] MEDS ORDERED: INFLUENZA VIRUS VACCINE QVS 2023-24 (6MO+)/PF 60 MCG/0.5 ML SYRINGE IM. ONE (04:00)
[2023-01-14 04:45] VITALS: BP 140/93; PULSE 99; RESP 20; TEMP 98.1
[2023-01-14] MEDS: PIPERACILLIN/TAZO 3.375 GM/D5W 50 ML IV SCH ×4 (05:38→17:32)
[2023-01-14 06:43] LABS: BASOPHILS % (AUTO) 0.3 % (0.0-2.0); EOSINOPHILS % (AUTO) 1.1 % (1.0-6.0); HEMATOCRIT 40.1 % (41-53); HEMOGLOBIN 13.5 g/dL (13.5-17.5); LYMPHOCYTES # (AUTO) 2.2 K/uL (1.0-4.8); LYMPHOCYTES % (AUTO) 12.7 % (22.0-44.0); MEAN CORPUSCULAR HEMOGLOBIN 29.3 pg (26.0-34.0); MEAN CORPUSCULAR HGB CONC 33.6 G/dL (31.0-37.0); MEAN CORPUSCULAR VOLUME 87 fL (80-100); MONOCYTES # (AUTO) 2.5 K/uL (0.1-1.0); MONOCYTES % (AUTO) 14.3 % (2.0-9.0); NEUTROPHILS # (AUTO) 12.3 K/uL (1.8-7.7); NEUTROPHILS % (AUTO) 71.6 % (40.0-70.0); PLATELET COUNT (AUTO) 383 K/uL (150-450); RED BLOOD CELL COUNT(AUTO) 4.59 MIL/uL (4.50-5.90); RED CELL DISTRIBUTION WIDTH 14.3 % (11.5-14.5); WHITE BLOOD COUNT (AUTO) 17.2 K/uL (4.5-11.0)
[2023-01-14 06:58] LABS: ALANINE AMINOTRANSFERASE 34 U/L (12-78); ALBUMIN 3.3 g/dL (3.4-5.0); ALKALINE PHOSPHATASE 93 U/L (46-116); ANION GAP 17 mmol/L (8-16); ASPARTATE AMINOTRANSFERASE 30 U/L (15-37); CALCIUM, TOTAL 8.3 mg/dL (8.8-10.5); CARBON DIOXIDE 21 mmol/L (22-29); CHLORIDE 99 mmol/L (98-107); CREATININE 0.79 mg/dL (0.60-1.30); GLOMERULAR FILTR. RATE CALC > 60 mL/min (>60); GLUCOSE,RANDOM 93 mg/dL (70-110); POTASSIUM 3.2 mmol/L (3.5-5.1); SODIUM SERUM 137 mmol/L (136-145); TOTAL PROTEIN, SERUM 7.3 g/dL (6.4-8.2); UREA NITROGEN, BLOOD 14 mg/dL (7-18)
[2023-01-14 07:53] VITALS: BP 142/86; PULSE 100; RESP 20; TEMP 98.6
[2023-01-14] MEDS: PANTOPRAZOLE SODIUM 40 MG/VIAL IVP SCH (09:01)
[2023-01-14] MEDS ORDERED: POTASSIUM CHL 10 MEQ/WATER 50 ML IV PRN (09:45)
[2023-01-14] MEDS: POTASSIUM CHLORIDE 20 MEQ ER TABLET PO PRN (10:00)
[2023-01-14] MEDS ORDERED: QUEtiapine FUMARATE 100 MG TABLET PO PRN (11:00)
[2023-01-14] MEDS: GABAPENTIN 300 MG CAPSULE PO SCH ×3 (13:08→21:16)
[2023-01-14 15:00] VITALS: BP 146/90; PULSE 101; RESP 20; TEMP 98.8
[2023-01-14] MEDS: QUEtiapine FUMARATE 200 MG TABLET PO SCH (21:16)
[2023-01-15] MEDS: PIPERACILLIN/TAZO 3.375 GM/D5W 50 ML IV SCH ×2 (00:38→06:14)
[2023-01-15 08:12] LABS: BASOPHILS % (AUTO) 0.8 % (0.0-2.0); EOSINOPHILS % (AUTO) 6.2 % (1.0-6.0); HEMATOCRIT 40.6 % (41-53); HEMOGLOBIN 13.4 g/dL (13.5-17.5); LYMPHOCYTES # (AUTO) 2.1 K/uL (1.0-4.8); LYMPHOCYTES % (AUTO) 27.2 % (22.0-44.0); MEAN CORPUSCULAR HEMOGLOBIN 28.8 pg (26.0-34.0); MEAN CORPUSCULAR HGB CONC 33.1 G/dL (31.0-37.0); MEAN CORPUSCULAR VOLUME 87 fL (80-100); MONOCYTES # (AUTO) 1.1 K/uL (0.1-1.0); MONOCYTES % (AUTO) 14.7 % (2.0-9.0); NEUTROPHILS # (AUTO) 3.9 K/uL (1.8-7.7); NEUTROPHILS % (AUTO) 51.1 % (40.0-70.0); PLATELET COUNT (AUTO) 366 K/uL (150-450); RED BLOOD CELL COUNT(AUTO) 4.66 MIL/uL (4.50-5.90); RED CELL DISTRIBUTION WIDTH 14.7 % (11.5-14.5); WHITE BLOOD COUNT (AUTO) 7.6 K/uL (4.5-11.0)
[2023-01-15] MEDS: GABAPENTIN 300 MG CAPSULE PO SCH (08:44)
[2023-01-15] MEDS: QUEtiapine FUMARATE 200 MG TABLET PO SCH (08:44)
[2023-01-15] MEDS: PANTOPRAZOLE SODIUM 40 MG/VIAL IVP SCH (08:44)
[2023-01-15] MEDS: POTASSIUM CHLORIDE 20 MEQ ER TABLET PO PRN (08:44)
== END 2023-01-15 10:30 | disposition left against medical advice (07) | DRG 389 ==
LOC: EMS 03:47 → ICUN 12:10 → 6N 16:40
PROVIDERS: ADMIT Internal Medicine; ATTEND Internal Medicine
DX: K56.600 Partial intestinal obstruction, unspecified as to cause (principal); R45.851 Suicidal ideations; K56.7 Ileus, unspecified; D72.829 Elevated white blood cell count, unspecified; G80.9 Cerebral palsy, unspecified; Z53.21 Procedure and treatment not carried out due to patient leaving prior to being seen by health care provider; Z20.822 Contact with and (suspected) exposure to COVID-19; F10.20 Alcohol dependence, uncomplicated; I10 Essential (primary) hypertension; F19.10 Other psychoactive substance abuse, uncomplicated; F43.10 Post-traumatic stress disorder, unspecified; E87.6 Hypokalemia; G40.909 Epilepsy, unspecified, not intractable, without status epilepticus; F25.9 Schizoaffective disorder, unspecified; Z87.891 Personal history of nicotine dependence; Z88.8 Allergy status to other drugs, medicaments and biological substances; Z79.899 Other long term (current) drug therapy
CPT/HCPCS: 74019; 74177; 76700; 80053; 80307; 81001; 83605; 83690; 84132; 85025; 87040; 99285; C9113; G0480; J0360; J1200; J1630; J2060; J2543; J7030; J7050; Q0162; Q9967